=== PATIENT | female | born 1935 | race Caucasian/White ===

== ENCOUNTER 2017-01-16 14:03 | Inpatient (IN) | payer MEDICARE ==
--- NOTE | 2017-01-16 15:16 | RAD ---
INDICATION: Fever. Cough. COMPARISON: June 28, 2016 TECHNIQUE: An AP portable view obtained at 1453 hours is submitted. FINDINGS: Bones/Soft Tissues: There are no acute bony findings. Cardiomediastinal: The correct silhouette is mildly prominent with uncoiling of the thoracic aorta. In part this is accentuated by significant rotation on the image. Lungs: There is mild interstitial prominence likely related to interstitial congestion. There may be a developing left basilar infiltrate Pleura: Suspect small left-sided effusion. Other: None IMPRESSION: SUSPECT MILD INTERSTITIAL CONGESTION AND DEVELOPING LEFT BASILAR INFILTRATE AND RECOMMEND FOLLOW-UP INDICATED.
[2017-01-16] MEDS ORDERED: NS 0.9% 1000 ML* 1,000 ML IV ONE (15:25)
[2017-01-16] MEDS ORDERED: Levofloxacin 750 MG IVPREMIX(* 750 MG/150 ML BAG IVPB ONE (15:25)
[2017-01-16 15:33] LABS: Hematocrit 39 % (35-47); Hemoglobin 12.7 g/dl (12.0-16.0); Mean Corpuscular HGB Conc 33 g/dl (31-36); Mean Corpuscular Hemoglobin 30 pg (27-31); Mean Corpuscular Volume 91 fL (80-97); Mean Platelet Volume 8 um3 (7.4-10.4); Red Blood Count 4.24 10^6/ul (4.0-5.4); Red Cell Distribution Width 13 % (10.5-15); White Blood Count 16.8 10^3/ul (3.5-10.8)
[2017-01-16 15:50] LABS: BUN/Creatinine Ratio 16.9 (8-20); C Reactive Protein 31.83 mg/L (< 5.00); Calcium 9.6 mg/dL (8.6-10.3); EGFR African American 78.1 (>60); EGFR Non-African American 60.7 (>60); Total Bilirubin 0.7 mg/dL (0.2-1.0)
[2017-01-16 15:51] LABS: Troponin I 0.01 ng/mL (<0.04)
[2017-01-16] MEDS ORDERED: Ondansetron INJ* 2 MG/ML VIAL IV PRN (16:08)
[2017-01-16] MEDS ORDERED: Albuterol 2.5 MG/3 ML NEB.SOL* (0.083%) INH PRN (16:08)
[2017-01-16] MEDS ORDERED: Acetaminophen TAB* 325 MG PO PRN (16:08)
[2017-01-16] MEDS ORDERED: NS 0.9% 1000 ML* 1,000 ML IV SCH (16:15)
[2017-01-16] MEDS ORDERED: Potassium Chlor TAB* 20 MEQ TAB.ER PO ONE (16:29)
--- NOTE | 2017-01-16 19:09 | HP ---
HISTORY AND PHYSICAL: DATE OF ADMISSION: 01/16/17 PRIMARY CARE PROVIDER: Dr. Liz ATTENDING PHYSICIAN WHILE IN THE HOSPITAL: Dr. Lisa Garcia* (report dictated by Anabell Villatoro NP). CHIEF COMPLAINT: 1. Cough. 2. Shortness of breath. HISTORY OF PRESENT ILLNESS: Ms. Haro is an 81-year-old female patient who has a history of AFib, COPD, GERD, hypertension, depression, and arthritis, who comes in today stating that in the last 24 hours, she developed a progressive worsening cough, shortness of breath, bringing up a green-yellowish type sputum. She has gotten progressively worse over the last 24 hours, so she decided to come into the ER to be evaluated. She says that she has been coughing more. She has been more short of breath. She says that recently one of her grandchildren was sick with a sore throat, and she had received a kiss from her on the cheek and that was a few days ago. She denied any chills or fevers. She does admit to having chills here. She denies having any chest pain. She does admit to shortness of breath, particularly with exertion. She denied any abdominal pain, any nausea or vomiting or any recent choking with food. She came into the ER, was evaluated. She was noted on x-ray to have what appeared to be an infiltrate. In addition to this, she was found to have elevated white count. Hospitalist service was asked to evaluate for admission. PAST MEDICAL HISTORY: Significant for: 1. AFib. 2. COPD. 3. GERD. 4. Hypertension. 5. Depression. 6. Arthritis. PAST SURGICAL HISTORY: 1. She has had a laparoscopic cholecystectomy. 2. Cataracts. 3. Tonsillectomy. HOME MEDICATIONS: Include according to the list: 1. Dyazide one capsule p.o. daily. 2. Zoloft 50 mg daily. 3. Xarelto 20 mg p.o. daily. 4. Lyrica 100 mg p.o. t.i.d. 5. Potassium 20 mEq p.o. b.i.d. 6. Prilosec 20 mg p.o. b.i.d. 7. Naproxen 375 mg p.o. b.i.d. 8. Singulair 10 mg p.o. daily. 9. Loratadine 10 mg daily. 10. Atrovent 2 puffs inhaled q.i.d. 11. Hydrocortisone topically b.i.d. as needed. 12. Lorcet one tablet p.o. every 4 hours as needed. 13. Lasix 20 mg p.o. b.i.d. 14. Ferrous sulfate 325 mg daily. 15. Colace 100 mg p.o. b.i.d. 16. Diltiazem 300 mg p.o. daily. 17. Albuterol 2 puffs inhaled every 3 to 4 hours as needed. ALLERGIES TO MEDICATIONS: No known drug allergies. FAMILY HISTORY: Reviewed and essentially noncontributory. SOCIAL HISTORY: She is a former smoker. She does not drink alcohol. She lives with her boyfriend. Surrogate decision maker is her daughter and her son. REVIEW OF SYSTEMS: There is no documented fever. She denied any significant weight change. There was no double vision. There is no ear discharge. She denies having any rhinorrhea. She does admit to a sore throat. There is no thyroid enlargement. Denies any chest pain. There is dyspnea on exertion. There is no abdominal pain. No nausea, no vomiting. No dysuria, no frequency. No seizure. No loss of consciousness. No pruritus. No skin ulceration. Review of 14 systems completed, all others negative. PHYSICAL EXAMINATION GENERAL: Ms. Haro is an 81-year-old female patient. She is sitting in the ER stretcher. She does not appear to be in acute distress. VITAL SIGNS: Blood pressure 126/47, pulse 93, respirations 20, O2 sat 95% on 2 L, temperature 99.5. HEENT: Head is atraumatic and normocephalic. Eyes: EOMs are intact. Sclerae anicteric and not pale. Throat: Oral mucosa appears to be moist. No oropharyngeal erythema. NECK: Supple. LUNGS: She had wheezes noted in the upper lobe. She had rhonchi in the right lower base. HEART: Sounds S1, S2. Regular rate and rhythm. ABDOMEN: Soft, flat, nontender. Bowel sounds present. EXTREMITIES: Pulses were 2+ throughout. She is able to move all 4 extremities with 5/5 strength. NEUROLOGIC: She is awake. She is alert. She is oriented x3. Tongue midline. Cytotechnologist were equal. No gross focal deficits. SKIN: Grossly intact. DIAGNOSTIC STUDIES/LAB DATA: The labs today reveal WBC of 16.8, RBC of 4.24, hemoglobin 12.7, hematocrit 39, platelet count of 211. INR 1.63. The sodium was 138, potassium 3.0, chloride 95, 40, BUN 15, creatinine 0.89, glucose 146, lactate 2.6, calcium 9.6. Total bilirubin 0.7, AST 15, ALT 9, alk phos 89. Troponin 0.01, CRP is 31, albumin of 4. Chest x-ray obtained today which showed suspect mild interstitial congestion developing left basilar infiltrate. Recommend followup. There was an EKG obtained today, which revealed atrial fibrillation, rate of 92. No ST elevations or T wave inversions. Old medical records were reviewed. ASSESSMENT AND PLAN: Ms. Haro is an 81-year-old female patient coming into the ER today with complaints of cough, bringing up sputum. On evaluation was found to have an elevated white count, possible pneumonia. She will be admitted under inpatient status for: 1. Pneumonia. At this point, she does have early signs of sepsis. She has got an elevated white count, heart rates in the 90s. My plan is that she get a liter of fluid here in the ER. We will repeat the lactate later tonight. In addition to this, we will put her on Rocephin and azithromycin. I will also get blood cultures if they have not been done yet. We will check flu swab, legionella antigen, Strep pneumo antigen. In addition to this, we will get a sputum culture if possible, and we will continue to follow. 2. AFib. She appears to be rate controlled while she is here in the hospital. We will continue the Xarelto. In addition to this, I am also going to go ahead and change her diltiazem CD to the short-acting version while she is here in the hospital, with hold parameters. 3. Chronic obstructive pulmonary disease. She is wheezing on exam. We will put her on nebs round the clock, steroids, Dulera, and aggressive pulmonary toileting. 4. Gastroesophageal reflux disease. Continue with her meds as prescribed. 5. Hypertension. Holding the Lasix, not Dyazide while she is here. We will continue with the diltiazem with hold parameters. 6. Depression. Continue supportive care. 7. Arthritis. Continue current medical regimen. 8. DVT prophylaxis. She is on Xarelto. We will continue with this and SCDs. 9. Fluid, electrolytes and nutrition. She can have a regular diet. 10. Code status is full code. 11. Hypokalemia. We will go ahead and replace this with p.o. and IV potassium. TIME SPENT: On this admission was approximately 70 minutes, greater than half the time was spent [id number] with the patient, obtaining my history of physical; the other half time was spent going over the plan of care with the patient and implementing plan of care. I did discuss the plan of care with my attending Dr. Garcia; she is in agreement. ANABELL VILLATORO NP CC: Dr. Liz* [id number]/CPS #: [id number] LAURENCE
[2017-01-16] MEDS: KCL 10 MEQ/50 ML IVPREMIX* 10 MEQ/50 ML BAG IV SCH ×2 (19:14→21:30)
--- NOTE | 2017-01-16 19:23 | ED ---
Kelley Mandel Alok, scribed for Cheng Ramos MD on 01/16/17 at 1446 . Shortness of Breath - HPI Summary HPI Summary: 81F presents to the ED sent here from her PCP Dr. Liz with a productive cough with yellow sputum beginning last night. Pt states she felt fine during the day yesterday. Pt notes SOB this morning due to chest congestion and notes a fever earlier. PMHx includes COPD and A fib. Pt is on 2L O2 at home. - History of Current Complaint Chief Complaint: EDDysrhythmPalp Time Seen by Provider: 01/16/17 14:19 Hx Obtained From: Patient Onset/Duration: Lasting Hours, Still Present Current Severity: Moderate Dyspnea At: Rest Associated Signs & Symptoms: Cough (Productive), Fever - Allergy/Home Medications Allergies/Adverse Reactions: Allergies Allergy/AdvReac Type Severity Reaction Status Date / Time No Known Allergies Allergy Verified 07/06/16 10:39 Home Medications: Home Medications Diltiazem HCl Coated Beads [Cartia Xt] 300 mg PO DAILY 01/16/17 [History Confirmed 01/16/17] Hydrocortisone 1% CREAM* [Hytone Cream 1%*] 1 applic TOPICAL BID PRN 01/16/17 [ History Confirmed 01/16/17] Ipratropium HFA INHALER(NF) [Atrovent Hfa Inhaler(NF)] 2 puff INH QID 01/16/17 [ History Confirmed 01/16/17] Loratadine [Allergy Relief] 10 mg PO DAILY 01/16/17 [History Confirmed 01/16/17] Naproxen TAB* [Naprosyn 375 mg TAB*] 375 mg PO BID 01/16/17 [History Confirmed 01/16/17] Rivaroxaban TAB(*) [Xarelto 20 mg] 20 mg PO DAILY 01/16/17 [History Confirmed ] Triamterene/HCTZ 37.5-25 MG* [Dyazide CAP*] 1 cap PO DAILY 01/16/17 [History Confirmed 01/16/17] PMH/Surg Hx/FS Hx/Imm Hx Cardiovascular History: Reports: Hx Congestive Heart Failure, Hx Hypertension Denies: Hx Myocardial Infarction Respiratory History: Reports: Hx Asthma, Hx Chronic Obstructive Pulmonary Disease (COPD) - 2-4 L O2 at home, Other Respiratory Problems/Disorders - copd Musculoskeletal History: Reports: Hx Arthritis Sensory History: Reports: Hx Contacts or Glasses Opthamlomology History: Reports: Hx Contacts or Glasses Psychiatric History: Reports: Hx Anxiety, Hx Depression - Surgical History Surgery Procedure, Year, and Place: cholecystectomy Infectious Disease History: Denies: Traveled Outside the [place] in Last 30 Days - Family History Known Family History: Negative: Cardiac Disease, Hypertension, Diabetes - Social History Occupation: Retired Lives: With Family Alcohol Use: None Hx Substance Use: No Substance Use Type: Reports: None, Synthetic Drugs Hx Tobacco Use: No Smoking Status (MU): Never Smoked Tobacco Have You Smoked in the Last Year: No Review of Systems Positive: Fever - earlier Positive: Other - Chest Congestion Positive: Shortness Of Breath, Cough All Other Systems Reviewed And Are Negative: Yes Physical Exam Triage Information Reviewed: Yes Vital Signs On Initial Exam: Initial Vitals Temp Pulse Resp BP Pulse Ox 99.5 F 155 19 153/70 88 01/16/17 14:04 01/16/17 14:04 01/16/17 14:04 01/16/17 14:04 01/16/17 14:04 Vital Signs Reviewed: Yes Appearance: Positive: Well-Appearing, No Pain Distress Skin: Positive: Warm, Skin Color Reflects Adequate Perfusion, Dry Head/Face: Positive: Normal Head/Face Inspection Eyes: Positive: Normal ENT: Positive: Normal ENT inspection Neck: Positive: Supple, Nontender Respiratory/Lung Sounds: Positive: Other - Wheezes and Rhonchi in all lung feilds. Wet sounding cough. Piting edema bilaterally. Cardiovascular: Positive: Other - Irregular Heart Rate Abdomen Description: Positive: Nontender, Soft Bowel Sounds: Positive: Present Musculoskeletal: Positive: Normal Neurological: Positive: Normal Psychiatric: Positive: Normal, Affect/Mood Appropriate - Mary Coma Scale Coma Scale Total: 15 Diagnostics - Vital Signs Vital Signs Temp Pulse Resp BP Pulse Ox 01/16/17 14:25 99.5 F 94 20 117/70 94 01/16/17 14:04 99.5 F 155 19 153/70 88 - Laboratory Lab Results: Lab Results 01/16/17 01/16/17 01/16/17 Range/Units 15:12 15:12 15:12 WBC 16.8 H (3.5-10.8) 10^3/ul RBC 4.24 (4.0-5.4) 10^6/ul Hgb 12.7 (12.0-16.0) g/dl Hct 39 (35-47) % MCV 91 (80-97) fL MCH 30 (27-31) pg MCHC 33 (31-36) g/dl RDW 13 (10.5-15) % Plt Count 211 (150-450) 10^3/ul MPV 8 (7.4-10.4) um3 Neut % (Auto) 87.0 H (38-83) % Lymph % (Auto) 5.8 L (25-47) % [place] % (Auto) 6.6 (1-9) % Eos % (Auto) 0.3 (0-6) % Baso % (Auto) 0.3 (0-2) % Absolute Neuts (auto) 14.6 H (1.5-7.7) 10^3/ul Absolute Lymphs (auto) 1.0 (1.0-4.8) 10^3/ul Absolute Monos (auto) 1.1 H (0-0.8) 10^3/ul Absolute Eos (auto) 0.1 (0-0.6) 10^3/ul Absolute Basos (auto) 0.1 (0-0.2) 10^3/ul Absolute Nucleated RBC 0 10^3/ul Nucleated RBC % 0 INR (Anticoag Therapy) 1.63 H (0.89-1.11) Sodium 138 (133-145) mmol/L Potassium 3.0 L (3.5-5.0) mmol/L Chloride 90 L (101-111) mmol/L Carbon Dioxide 40 H (22-32) mmol/L Anion Gap 8 (2-11) mmol/L BUN 15 (6-24) mg/dL Creatinine 0.89 (0.51-0.95) mg/dL Est GFR ( Amer) 78.1 (>60) Est GFR (Non-Af Amer) 60.7 (>60) BUN/Creatinine Ratio 16.9 (8-20) Glucose 146 H (70-100) mg/dL Lactic Acid (0.5-2.0) mmol/L Calcium 9.6 (8.6-10.3) mg/dL Total Bilirubin 0.70 (0.2-1.0) mg/dL AST 15 (13-39) U/L ALT 9 (7-52) U/L Alkaline Phosphatase 89 (34-104) U/L Troponin I 0.01 (<0.04) ng/mL C-Reactive Protein 31.83 H (< 5.00) mg/L B-Natriuretic Peptide ( - 100) pg/mL Total Protein 7.0 (6.4-8.9) g/dL Albumin 4.0 (3.2-5.2) g/dL Globulin 3.0 (2-4) g/dL Albumin/Globulin Ratio 1.3 (1-3) 01/16/17 01/16/17 Range/Units 15:12 15:12 WBC (3.5-10.8) 10^3/ul RBC (4.0-5.4) 10^6/ul Hgb (12.0-16.0) g/dl Hct (35-47) % MCV (80-97) fL MCH (27-31) pg MCHC (31-36) g/dl RDW (10.5-15) % Plt Count (150-450) 10^3/ul MPV (7.4-10.4) um3 Neut % (Auto) (38-83) % Lymph % (Auto) (25-47) % [place] % (Auto) (1-9) % Eos % (Auto) (0-6) % Baso % (Auto) (0-2) % Absolute Neuts (auto) (1.5-7.7) 10^3/ul Absolute Lymphs (auto) (1.0-4.8) 10^3/ul Absolute Monos (auto) (0-0.8) 10^3/ul Absolute Eos (auto) (0-0.6) 10^3/ul Absolute Basos (auto) (0-0.2) 10^3/ul Absolute Nucleated RBC 10^3/ul Nucleated RBC % INR (Anticoag Therapy) (0.89-1.11) Sodium (133-145) mmol/L Potassium (3.5-5.0) mmol/L Chloride (101-111) mmol/L Carbon Dioxide (22-32) mmol/L Anion Gap (2-11) mmol/L BUN (6-24) mg/dL Creatinine (0.51-0.95) mg/dL Est GFR ( Amer) (>60) Est GFR (Non-Af Amer) (>60) BUN/Creatinine Ratio (8-20) Glucose (70-100) mg/dL Lactic Acid 2.6 H* (0.5-2.0) mmol/L Calcium (8.6-10.3) mg/dL Total Bilirubin (0.2-1.0) mg/dL AST (13-39) U/L ALT (7-52) U/L Alkaline Phosphatase (34-104) U/L Troponin I (<0.04) ng/mL C-Reactive Protein (< 5.00) mg/L B-Natriuretic Peptide 134 H ( - 100) pg/mL Total Protein (6.4-8.9) g/dL Albumin (3.2-5.2) g/dL Globulin (2-4) g/dL Albumin/Globulin Ratio (1-3) Result Diagrams: 01/16/17 15:12 01/16/17 15:12 Lab Statement: Any lab studies that have been ordered have been reviewed, and results considered in the medical decision making process. - Radiology CXR Xray Interpretation: Positive (See Comments) - IMPRESSION: SUSPECT MILD INTERSTITIAL CONGESTION AND DEVELOPING LEFT BASILAR INFILTRATE AND RECOMMEND FOLLOW-UP INDICATED. Radiology Interpretation Completed By: Radiologist - EKG 1423 Cardiac Rate: NL - 92 bpm EKG Rhythm: Atrial Fibrillation Course/Dx - Course Course Of Treatment: Ms. Haro presented in obvious distress. She looked pale and ill. She was treated with fluids gently (she has a CHF history) and antibiotics after a CXR revealed an infiltrate. - Diagnoses Provider Diagnoses: Pneumonia, Severe sepsis - Physician Notifications Discussed Care of Patient With: Attila Villatoro (Hospitalist, PLUGGER MAN) @ [id number] - Will admit pt - Critical Care Time Critical Care Time: 30-74 min Discharge - Discharge Plan Condition: Stable Disposition: ADMITTED TO [facility] documentation as recorded by the Kelley angeles Alok accurately reflects the service I personally performed and the decisions made by me, Cheng Ramos MD.
[2017-01-16] MEDS: cefTRIAXone VIAL(*) 1,000 MG in NS 0.9% 50 ML* 50 ML IVPB SCH (19:32)
[2017-01-16] MEDS: Azithromycin IV(*) 500 MG in NS 0.9% 250 ML* 250 ML IVPB SCH (20:07)
[2017-01-16] MEDS: Albuterol/Ipratropium NEB.SOL* Albuterol 2.5 MG/Ipratropium 0.5 MG 3 ML INH SCH ×2 (20:11)
[2017-01-16] MEDS: Mometasone/Formoter 200/5 MDI INH SCH (20:21)
[2017-01-16] MEDS: Pregabalin CAP(*) 100 MG PO SCH (21:33)
[2017-01-16] MEDS: Omeprazole CAP* 20 MG PO SCH (21:33)
[2017-01-17] LABS: Urine Bacteria 1+ (Absent); Urine Bilirubin Negative (Negative); Urine Glucose Negative (Negative); Urine Nitrite Positive (Negative)
[2017-01-17] MEDS: KCL 10 MEQ/50 ML IVPREMIX* 10 MEQ/50 ML BAG IV SCH (00:17)
[2017-01-17] MEDS: Albuterol/Ipratropium NEB.SOL* Albuterol 2.5 MG/Ipratropium 0.5 MG 3 ML INH SCH ×6 (00:19→20:44)
[2017-01-17] MEDS: HYDROcodone/ACETAMIN 5-325 MG* 1 TAB PO PRN ×5 (00:35→21:27)
[2017-01-17 05:11] LABS: Hematocrit 36 % (35-47); Mean Corpuscular HGB Conc 33 g/dl (31-36); Mean Corpuscular Hemoglobin 31 pg (27-31); Mean Corpuscular Volume 92 fL (80-97); Mean Platelet Volume 9 um3 (7.4-10.4); Red Blood Count 3.94 10^6/ul (4.0-5.4); Red Cell Distribution Width 13 % (10.5-15); White Blood Count 10.8 10^3/ul (3.5-10.8)
[2017-01-17 05:21] LABS: BUN/Creatinine Ratio 14.6 (8-20); Calcium 9.1 mg/dL (8.6-10.3); EGFR African American 85.8 (>60); EGFR Non-African American 66.7 (>60); Potassium 3.3 mmol/L (3.5-5.0)
[2017-01-17] MEDS: Omeprazole CAP* 20 MG PO SCH ×2 (08:12→21:26)
[2017-01-17] MEDS: Pregabalin CAP(*) 100 MG PO SCH ×3 (08:12→21:26)
[2017-01-17] MEDS: Sertraline* 50 MG TAB PO SCH (08:12)
[2017-01-17] MEDS: Rivaroxaban TAB(*) 20 MG TAB PO SCH (08:13)
[2017-01-17] MEDS: Diltiazem TAB* 60 MG PO SCH ×3 (08:13→17:05)
[2017-01-17] MEDS: Mometasone/Formoter 200/5 MDI INH SCH ×2 (08:27→20:44)
[2017-01-17] MEDS: Furosemide IV* 10 MG/ML 2 ML VIAL (20 MG) IV SLOW PU SCH (13:48)
[2017-01-17] MEDS: cefTRIAXone VIAL(*) 1,000 MG in NS 0.9% 50 ML* 50 ML IVPB SCH (17:06)
--- NOTE | 2017-01-17 17:28 | PN ---
Subjective Date of Service: 01/17/17 Interval History: Seen with battery inspector at bedside Feels breathing is improved Appetite low +cough Objective Active Medications: Acetaminophen (Tylenol Tab*) 650 mg PO Q4H PRN PRN Reason: FEVER/PAIN Hydrocodone Bitart/Acetaminophen ([place] 5-325 Tab*) 1 tab PO Q4H PRN PRN Reason: PAIN Last Admin: 01/17/17 17:05 Dose: 1 tab Albuterol (Ventolin 2.5 Mg/3 Ml Neb.Selina*) 2.5 mg INH Q2H PRN PRN Reason: SOB/WHEEZING Albuterol/Ipratropium (Duoneb (Albuterol 2.5 Mg/Ipratropium 0.5 Mg)) 1 neb INH Q4H [facility] Last Admin: 01/17/17 16:36 Dose: 1 neb Diltiazem HCl (Cardizem Tab*) 60 mg PO Q6HR [facility] Last Admin: 01/17/17 17:05 Dose: 60 mg Furosemide (Lasix Iv*) 20 mg IV SLOW PU DAILY [facility] Last Admin: 01/17/17 13:48 Dose: 20 mg Ceftriaxone Sodium 1,000 mg/ (Sodium Chloride) 50 mls @ 200 mls/hr IVPB Q24H [facility] Last Admin: 01/17/17 17:06 Dose: 200 mls/hr Azithromycin 500 mg/ Sodium (Chloride) 250 mls @ 250 mls/hr IVPB Q24H [facility]Y Last Admin: 01/16/17 20:07 Dose: 250 mls/hr Mometasone Furoate/Formoterol Fumar (Dulera 200/5 Mdi*) 2 puff INH BID [facility] Last Admin: 01/17/17 08:27 Dose: 2 puff Omeprazole (Prilosec Cap*) 20 mg PO BID [facility] Last Admin: 01/17/17 08:12 Dose: 20 mg Ondansetron HCl (Zofran Inj*) 4 mg IV Q6H PRN PRN Reason: NAUSEA Pregabalin (Lyrica Cap(*)) 100 mg PO TID [facility] Last Admin: 01/17/17 12:05 Dose: 100 mg Rivaroxaban (Xarelto (*)) 20 mg PO DAILY [facility] Last Admin: 01/17/17 08:13 Dose: 20 mg Sertraline HCl (Zoloft*) 50 mg PO DAILY [facility] Last Admin: 01/17/17 08:12 Dose: 50 mg Vital Signs 01/16/17 01/16/17 01/16/17 18:00 20:00 20:05 Temperature 98.4 F 99.5 F Pulse Rate 89 95 Respiratory 22 22 20 Rate Blood Pressure 121/65 128/71 (mmHg) O2 Sat by Pulse 96 92 Oximetry 01/16/17 01/16/17 01/16/17 20:14 20:17 21:33 Temperature Pulse Rate 90 89 Respiratory 22 Rate Blood Pressure (mmHg) O2 Sat by Pulse 98 92 Oximetry 01/16/17 01/17/17 01/17/17 23:33 00:23 00:35 Temperature Pulse Rate 89 Respiratory 20 20 Rate Blood Pressure (mmHg) O2 Sat by Pulse 98 Oximetry 01/17/17 01/17/17 01/17/17 00:41 02:35 04:32 Temperature 98.5 F Pulse Rate 106 87 Respiratory 20 18 Rate Blood Pressure 135/63 (mmHg) O2 Sat by Pulse 90 94 Oximetry 01/17/17 01/17/17 01/17/17 04:39 04:43 07:26 Temperature 98.5 F 98.1 F Pulse Rate 75 94 89 Respiratory 20 20 Rate Blood Pressure 112/67 132/79 (mmHg) O2 Sat by Pulse 96 93 97 Oximetry 01/17/17 01/17/17 01/17/17 08:00 08:05 08:12 Temperature Pulse Rate Respiratory 18 18 22 Rate Blood Pressure (mmHg) O2 Sat by Pulse Oximetry 01/17/17 01/17/17 01/17/17 08:30 10:05 10:12 Temperature Pulse Rate 89 Respiratory 20 18 19 Rate Blood Pressure (mmHg) O2 Sat by Pulse 93 Oximetry 01/17/17 01/17/17 01/17/17 11:59 12:05 13:40 Temperature 97.3 F Pulse Rate 82 Respiratory 24 18 18 Rate Blood Pressure 128/75 (mmHg) O2 Sat by Pulse 96 Oximetry 01/17/17 01/17/17 01/17/17 13:43 16:10 16:40 Temperature 98.2 F Pulse Rate 93 85 82 Respiratory 18 20 18 Rate Blood Pressure 118/59 (mmHg) O2 Sat by Pulse 99 99 Oximetry 01/17/17 01/17/17 17:05 17:10 Temperature Pulse Rate Respiratory 16 Rate Blood Pressure 114/59 (mmHg) O2 Sat by Pulse Oximetry Oxygen Devices in Use Now: Nasal Cannula Appearance: sitting in chair, talks in full sentences, NAD Eyes: No Scleral Icterus, PERRLA Ears/Nose/Mouth/Throat: Mucous Membranes Moist Neck: NL Appearance and Movements; NL JVP, Trachea Midline Respiratory: Symmetrical Chest Expansion and Respiratory Effort, - - rhonchi on right from base to 2/3 up Cardiovascular: - - IRIR Abdominal: NL Sounds; No Tenderness; No Distention, No Hepatosplenomegaly Extremities: - - 2+ LE edema Neurological: Alert and Oriented x 3 Result Diagrams: 01/17/17 04:26 01/17/17 04:26 Additional Lab and Data: Lab Results 01/16/17 01/16/17 01/16/17 Range/Units 15:12 15:12 15:12 WBC 16.8 H (3.5-10.8) 10^3/ul RBC 4.24 (4.0-5.4) 10^6/ul Hgb 12.7 (12.0-16.0) g/dl Hct 39 (35-47) % MCV 91 (80-97) fL MCH 30 (27-31) pg MCHC 33 (31-36) g/dl RDW 13 (10.5-15) % Plt Count 211 (150-450) 10^3/ul MPV 8 (7.4-10.4) um3 Neut % (Auto) 87.0 H (38-83) % Lymph % (Auto) 5.8 L (25-47) % [place] % (Auto) 6.6 (1-9) % Eos % (Auto) 0.3 (0-6) % Baso % (Auto) 0.3 (0-2) % Absolute Neuts (auto) 14.6 H (1.5-7.7) 10^3/ul Absolute Lymphs (auto) 1.0 (1.0-4.8) 10^3/ul Absolute Monos (auto) 1.1 H (0-0.8) 10^3/ul Absolute Eos (auto) 0.1 (0-0.6) 10^3/ul Absolute Basos (auto) 0.1 (0-0.2) 10^3/ul Absolute Nucleated RBC 0 10^3/ul Nucleated RBC % 0 INR (Anticoag Therapy) 1.63 H (0.89-1.11) Sodium 138 (133-145) mmol/L Potassium 3.0 L (3.5-5.0) mmol/L Chloride 90 L (101-111) mmol/L Carbon Dioxide 40 H (22-32) mmol/L Anion Gap 8 (2-11) mmol/L BUN 15 (6-24) mg/dL Creatinine 0.89 (0.51-0.95) mg/dL Est GFR ( Amer) 78.1 (>60) Est GFR (Non-Af Amer) 60.7 (>60) BUN/Creatinine Ratio 16.9 (8-20) Glucose 146 H (70-100) mg/dL Lactic Acid (0.5-2.0) mmol/L Calcium 9.6 (8.6-10.3) mg/dL Total Bilirubin 0.70 (0.2-1.0) mg/dL AST 15 (13-39) U/L ALT 9 (7-52) U/L Alkaline Phosphatase 89 (34-104) U/L Troponin I 0.01 (<0.04) ng/mL C-Reactive Protein 31.83 H (< 5.00) mg/L B-Natriuretic Peptide ( - 100) pg/mL Total Protein 7.0 (6.4-8.9) g/dL Albumin 4.0 (3.2-5.2) g/dL Globulin 3.0 (2-4) g/dL Albumin/Globulin Ratio 1.3 (1-3) 01/16/17 01/16/17 Range/Units 15:12 15:12 WBC (3.5-10.8) 10^3/ul RBC (4.0-5.4) 10^6/ul Hgb (12.0-16.0) g/dl Hct (35-47) % MCV (80-97) fL MCH (27-31) pg MCHC (31-36) g/dl RDW (10.5-15) % Plt Count (150-450) 10^3/ul MPV (7.4-10.4) um3 Neut % (Auto) (38-83) % Lymph % (Auto) (25-47) % [place] % (Auto) (1-9) % Eos % (Auto) (0-6) % Baso % (Auto) (0-2) % Absolute Neuts (auto) (1.5-7.7) 10^3/ul Absolute Lymphs (auto) (1.0-4.8) 10^3/ul Absolute Monos (auto) (0-0.8) 10^3/ul Absolute Eos (auto) (0-0.6) 10^3/ul Absolute Basos (auto) (0-0.2) 10^3/ul Absolute Nucleated RBC 10^3/ul Nucleated RBC % INR (Anticoag Therapy) (0.89-1.11) Sodium (133-145) mmol/L Potassium (3.5-5.0) mmol/L Chloride (101-111) mmol/L Carbon Dioxide (22-32) mmol/L Anion Gap (2-11) mmol/L BUN (6-24) mg/dL Creatinine (0.51-0.95) mg/dL Est GFR ( Amer) (>60) Est GFR (Non-Af Amer) (>60) BUN/Creatinine Ratio (8-20) Glucose (70-100) mg/dL Lactic Acid 2.6 H* (0.5-2.0) mmol/L Calcium (8.6-10.3) mg/dL Total Bilirubin (0.2-1.0) mg/dL AST (13-39) U/L ALT (7-52) U/L Alkaline Phosphatase (34-104) U/L Troponin I (<0.04) ng/mL C-Reactive Protein (< 5.00) mg/L B-Natriuretic Peptide 134 H ( - 100) pg/mL Total Protein (6.4-8.9) g/dL Albumin (3.2-5.2) g/dL Globulin (2-4) g/dL Albumin/Globulin Ratio (1-3) Microbiology and Other Data: Microbiology 01/16/17 23:40 Legionella Urinary Antigen - Final Urine Negative Legionella Streptococcus pneumoniae Ag Screen - Final Negative S. pneumo Antigen 01/16/17 20:12 Gram Stain - Final Sputum Expectorated 01/16/17 16:35 Group A Streptococcus Rapid Screen - Final Throat Specimen received for Rapid Strep A Molecular testing 01/16/17 16:35 Influenza Types A,B Antigen (SARAH) - Final Nasal Specimen received for Influenza A/B Molecular testing Assess/Plan/Problems-Billing Assessment: 81 yo F h/o COPD on home O2, afib, HTN, depression p/w cough, SOB, and infiltrate suggestive of PNA - Patient Problems (1) Pneumonia Comment: Suspect on left based on CXR however on right based on physical exam c/w CTX and azithromycin lasix 20mg IV today for intravascular volume overload (2) COPD (chronic obstructive pulmonary disease) Comment: c/w home oxygen via [place] dulera albuterol/ipratropium nebs PRN (3) Edema Comment: No e/o CHF on TTE IV lasix and monitor (4) Atrial fibrillation Comment: xarelto cardizem (5) DVT prophylaxis Comment: xarelto Status and Disposition: IV abx
[2017-01-17] MEDS: Azithromycin IV(*) 500 MG in NS 0.9% 250 ML* 250 ML IVPB SCH (17:46)
[2017-01-18] MEDS: Diltiazem TAB* 60 MG PO SCH ×2 (00:09→05:24)
[2017-01-18] MEDS: Albuterol/Ipratropium NEB.SOL* Albuterol 2.5 MG/Ipratropium 0.5 MG 3 ML INH SCH ×3 (00:23→08:40)
[2017-01-18] MEDS: HYDROcodone/ACETAMIN 5-325 MG* 1 TAB PO PRN (02:34)
[2017-01-18 06:30] LABS: Hematocrit 37 % (35-47); Hemoglobin 12.4 g/dl (12.0-16.0); Mean Corpuscular HGB Conc 34 g/dl (31-36); Mean Corpuscular Hemoglobin 31 pg (27-31); Mean Corpuscular Volume 92 fL (80-97); Mean Platelet Volume 9 um3 (7.4-10.4); Red Blood Count 4.03 10^6/ul (4.0-5.4); Red Cell Distribution Width 14 % (10.5-15); White Blood Count 12.8 10^3/ul (3.5-10.8)
[2017-01-18 06:52] LABS: BUN/Creatinine Ratio 13.6 (8-20); Calcium 9.4 mg/dL (8.6-10.3); EGFR African American 87.1 (>60); EGFR Non-African American 67.7 (>60)
[2017-01-18] MEDS ORDERED: Potassium Chlor TAB* 20 MEQ TAB.ER PO ONE (07:13)
[2017-01-18] MEDS: Rivaroxaban TAB(*) 20 MG TAB PO SCH (07:44)
[2017-01-18] MEDS: Pregabalin CAP(*) 100 MG PO SCH (07:44)
[2017-01-18] MEDS: Omeprazole CAP* 20 MG PO SCH (07:44)
[2017-01-18] MEDS: Sertraline* 50 MG TAB PO SCH (07:44)
[2017-01-18] MEDS: Furosemide IV* 10 MG/ML 2 ML VIAL (20 MG) IV SLOW PU SCH (07:46)
[2017-01-18 07:51] VITALS: BP 106/65
[2017-01-18] MEDS: Mometasone/Formoter 200/5 MDI INH SCH ×2 (08:40→10:19)
--- NOTE | 2017-01-19 12:17 | DS ---
DISCHARGE SUMMARY: DATE OF ADMISSION: 01/16/17 DATE OF DISCHARGE: 01/18/17 PRIMARY CARE PROVIDER: Dr. Liz. PRIMARY DIAGNOSIS: Pneumonia. SECONDARY DIAGNOSES: 1. Chronic obstructive pulmonary disease, on home oxygen. 2. Hypertension. 3. Depression. 4. Lower extremity edema. 5. Atrial fibrillation. 6. History of gastroesophageal reflux disease. 7. Arthritis. MEDICATIONS ON DISCHARGE: 1. Ipratropium HFA 4 times a day. 2. Ferrous sulfate 325 mg daily. 3. Docusate 100 mg twice daily. 4. Potassium chloride 20 mEq twice daily. 5. Albuterol HFA 2 puffs every 3 to 4 hours as needed for shortness of breath or wheeze. 6. Hydrocodone/acetaminophen one tab every 4 hours as needed for pain. 7. Loratadine 10 mg daily. 8. Hydrocortisone 1% cream topically twice daily as needed. 9. Diltiazem 300 mg daily. 10. Lyrica 100 mg 3 times a day. 11. Furosemide 20 mg twice daily. 12. Omeprazole 20 mg twice daily. 13. Naproxen 375 mg twice daily. 14. Singulair 10 mg daily. 15. Zoloft 50 mg daily. 16. Xarelto 20 mg daily. 17. Levofloxacin 750 mg daily for 7 additional days. Please note the discontinuation of Dyazide during the patient's hospital stay. PERTINENT LABORATORY DATA: White blood cell count on presentation 16.8. She has 87% neutrophils. Urine positive for leuk esterase, white blood cells, red blood cells, bacteria, and squamous epithelial cells with final urine culture positive for mixed montse as a possible contamination. PERTINENT IMAGING STUDIES: Chest x-ray, impression: Suspect mild interstitial congestion and developing left basilar infiltrate. T-max during the hospital stay was 99.5 degrees Fahrenheit. HISTORY OF PRESENT ILLNESS AND HOSPITAL COURSE: This is an 81-year-old female with past medical history as outlined in the history of present illness on the day of admission, presenting to the hospital with 24 hours of increasingly worse cough associated with shortness of breath. Chest x-ray in the emergency room was concerning for pulmonary vascular congestion as well as potentially developing left lower pneumonia. On exam, the patient had rhonchi from her right base up to two-thirds to her apex, discordant with chest x-ray findings. In the setting of leukocytosis, cough, shortness of breath and clinical exam, I thought the patient did clinically have a pneumonia. She was started on ceftriaxone and azithromycin in the emergency room, continued on Levaquin upon discharge for 7 additional days. Additionally, she received IV Lasix secondary to potentially intravascular pulmonary congestion, which is consistent with her lower extremity swelling. She will be continued on her home dose of Lasix after discharge. She had no fevers during the course of the hospital stay. Her leukocytosis improved. On the day of discharge, the patient felt that her breathing had returned to "100% of normal." On the day of discharge, the patient did have mild rales in her right base, largely improved from the day before. At followup, please; 1. Evaluate for continued resolution of pneumonia. Can consider repeat chest x - ray if symptoms do not resolve. 2. Mixed montse in urinary culture with resubmission suggested. Patient was asymptomatic and culture was not resubmitted. If symptomatic, please consider repeat UTI. 3. Dyazide stopped during the course of the hospital stay secondary to normal blood pressures. Consider resumption upon discharge if blood pressure becomes elevated. 4. No other specific labs or vitals that need followup. Reasons to return to the hospital include, but are not limited to, recurrent or worsening symptoms including chest pain, shortness of breath, lightheadedness, loss of consciousness, worsening cough, nausea, vomiting, diarrhea, bleeding from any source, inability to obtain or tolerate medications discussed with the patient and her partner and her son. They acknowledge understanding. TIME SPENT: Greater than 60 minutes was spent on the discharge of this patient , greater than half was spent [id number] with the patient. CC: Dr. Liz* [id number]/[facility] #: [id number] LAURENCE
== END 2017-01-18 11:48 | disposition home health service (06) | DRG 190 ==
LOC: ED 14:03 → MEDTELE 15:36
PROVIDERS: ADMIT Internal Medicine; ATTEND Internal Medicine
DX: J44.0 Chronic obstructive pulmonary disease with (acute) lower respiratory infection (principal); J18.9 Pneumonia, unspecified organism; I11.0 Hypertensive heart disease with heart failure; Z99.81 Dependence on supplemental oxygen; I48.91 Unspecified atrial fibrillation; I50.9 Heart failure, unspecified; J44.9 Chronic obstructive pulmonary disease, unspecified; M19.90 Unspecified osteoarthritis, unspecified site; F41.9 Anxiety disorder, unspecified; F32.9 Major depressive disorder, single episode, unspecified; R40.2412 Glasgow coma scale score 13-15, at arrival to emergency department; K21.9 Gastro-esophageal reflux disease without esophagitis; E87.6 Hypokalemia; Z90.49 Acquired absence of other specified parts of digestive tract; Z98.49 Cataract extraction status, unspecified eye; Z87.891 Personal history of nicotine dependence; Z79.01 Long term (current) use of anticoagulants
CPT/HCPCS: 36415; 71010; 80048; 80053; 81003; 81015; 83605; 83880; 84484; 85025; 85610; 86140; 87040; 87070; 87086; 87205; 87502; 87651; 87899; 93005; 94640; 94760; A9270-GY; J0456; J0696; J1940; J3480

== ENCOUNTER 2017-05-07 05:12 | Emergency (ER) | payer MEDICARE ==
[2017-05-07 05:55] LABS: Hematocrit 40 % (35-47); Hemoglobin 13.1 g/dl (12.0-16.0); Mean Corpuscular HGB Conc 33 g/dl (31-36); Mean Corpuscular Hemoglobin 30 pg (27-31); Mean Corpuscular Volume 91 fL (80-97); Mean Platelet Volume 8 um3 (7.4-10.4); Red Blood Count 4.34 10^6/ul (4.0-5.4); Red Cell Distribution Width 14 % (10.5-15); White Blood Count 9.2 10^3/ul (3.5-10.8)
[2017-05-07 06:00] LABS: Albumin 4.1 g/dL (3.2-5.2); BUN/Creatinine Ratio 16.9 (8-20); Calcium 9.9 mg/dL (8.6-10.3); EGFR African American 78.1 (>60); EGFR Non-African American 60.7 (>60); Globulin 3.1 g/dL (2-4); Potassium 3.6 mmol/L (3.5-5.0); Total Bilirubin 0.6 mg/dL (0.2-1.0); Total Protein 7.2 g/dL (6.4-8.9)
--- NOTE | 2017-05-07 06:14 | ED ---
Thad Mandel Rebecca, scribed for Gutierrez Panda on 05/07/17 at 0531 . Throat Pain/Nasal Congestion - HPI Summary HPI Summary: Pt is an 81 y/o F BIBA who presents to ED c/o epistaxis. Reports that her sx began last night at 1800 and continued until 2100. Upon waking up this morning, the bleeding began again but has stopped WEB SITE SPECIALIST. Sx aggravated by nothing, alleviated by spontaneous resolution. Pt reports that she feels well now. Is on Coumadin. Uses 2L O2 per Os at home. - History of Current Complaint Chief Complaint: EDEpistaxis Time Seen by Provider: 05/07/17 05:15 Hx Obtained From: Patient Onset/Duration: Lasting Hours, Resolved - Allergies/Home Medications Allergies/Adverse Reactions: Allergies Allergy/AdvReac Type Severity Reaction Status Date / Time No Known Allergies Allergy Verified 07/06/16 10:39 PMH/Surg Hx/FS Hx/Imm Hx Cardiovascular History: Reports: Hx Congestive Heart Failure, Hx Hypertension Denies: Hx Myocardial Infarction Respiratory History: Reports: Hx Asthma, Hx Chronic Obstructive Pulmonary Disease (COPD) - 2-4 L O2 at home, Other Respiratory Problems/Disorders - copd Musculoskeletal History: Reports: Hx Arthritis Sensory History: Reports: Hx Contacts or Glasses Denies: Hx Hearing Aid Opthamlomology History: Reports: Hx Contacts or Glasses Psychiatric History: Reports: Hx Anxiety, Hx Depression - Surgical History Surgery Procedure, Year, and Place: cholecystectomy Infectious Disease History: No Infectious Disease History: Denies: Traveled Outside the [place] in Last 30 Days - Family History Known Family History: Negative: Cardiac Disease, Hypertension, Diabetes - Social History Alcohol Use: None Hx Substance Use: No Substance Use Type: Reports: None Hx Tobacco Use: No Smoking Status (MU): Never Smoked Tobacco Have You Smoked in the Last Year: No Review of Systems Negative: Fever Positive: Epistaxis - resolved WEB SITE SPECIALIST All Other Systems Reviewed And Are Negative: Yes Physical Exam - Summary Physical Exam Summary: Appearance: Well appearing, no pain distress Skin: warm, dry, reflects adequate perfusion Head/face: normal Eyes: EOMI, LUCIUS ENT: dried blood in the nostrils, no active bleeding Neck: supple, nontender Respiratory: CTA, breath sounds present Cardiovascular: RRR, pulses symmetrical Abdomen: nontender, soft Bowel: present Musculoskeletal: normal, strength/ROM intact Neuro: normal, sensory motor intact, A&Ox3 Triage Information Reviewed: Yes Vital Signs On Initial Exam: Initial Vitals Temp Pulse Resp BP Pulse Ox 98.1 F 89 16 140/86 96 05/07/17 05:20 05/07/17 05:20 05/07/17 05:20 05/07/17 05:20 05/07/17 05:20 Vital Signs Reviewed: Yes Diagnostics - Vital Signs Vital Signs Temp Pulse Resp BP Pulse Ox 05/07/17 05:20 98.1 F 89 16 140/86 96 - Laboratory Result Diagrams: 05/07/17 05:30 05/07/17 05:30 Lab Statement: Any lab studies that have been ordered have been reviewed, and results considered in the medical decision making process. EENT Course/Dx - Course Assessment/Plan: Pt is an 81 y/o F BIBA who presents to ED c/o epistaxis. Reports that her sx began last night at 1800 and continued until 2100. Upon waking up this morning, the bleeding began again but has stopped WEB SITE SPECIALIST. Sx aggravated by nothing, alleviated by spontaneous resolution. Pt reports that she feels well now. Is on Coumadin. Uses 2L O2 per Os at home. Hgb of 13.1, Hct of 40, INR of 1.4. Pt will be D/C to home with Dx of epistaxis and a follow up with her PCP. She understands and agrees. Elevated BP noted and advised to f/u with PCP. - Diagnoses Provider Diagnoses: Epistaxis Discharge - Discharge Plan Condition: Stable Disposition: HOME Patient Education Materials: Nosebleed (ED) Referrals: Tonya Parrish, PERIOPERATIVE ASSISTANT [Primary Care Provider] - 3 Days The documentation as recorded by the Thad angeles Rebecca accurately reflects the service I personally performed and the decisions made by , Gutierrez Panda.
[2017-05-07 06:35] VITALS: BP 148/85
== END 2017-05-07 06:57 | disposition home or self-care (01) ==
LOC: ED 05:12
DX: R04.0 Epistaxis (principal); J44.9 Chronic obstructive pulmonary disease, unspecified; Z79.01 Long term (current) use of anticoagulants; I50.9 Heart failure, unspecified; I10 Essential (primary) hypertension; J45.909 Unspecified asthma, uncomplicated; F41.8 Other specified anxiety disorders; M19.90 Unspecified osteoarthritis, unspecified site
CPT/HCPCS: 36415; 80053; 85025; 85610; 85730; 99282

== ENCOUNTER 2017-07-30 08:34 | Emergency (ER) | payer MEDICARE ==
[2017-07-30 09:37] LABS: Hematocrit 36 % (35-47); Hemoglobin 11.7 g/dl (12.0-16.0); Mean Corpuscular HGB Conc 32 g/dl (31-36); Mean Corpuscular Hemoglobin 30 pg (27-31); Mean Corpuscular Volume 93 fL (80-97); Mean Platelet Volume 8 um3 (7.4-10.4); Red Blood Count 3.91 10^6/ul (4.0-5.4); Red Cell Distribution Width 14 % (10.5-15)
[2017-07-30 09:56] LABS: Albumin 3.5 g/dL (3.2-5.2); C Reactive Protein 6.37 mg/L (< 5.00); Calcium 9.3 mg/dL (8.6-10.3); EGFR African American 93.7 (>60); EGFR Non-African American 72.9 (>60); Globulin 2.9 g/dL (2-4); Potassium 4.2 mmol/L (3.5-5.0); Total Bilirubin 0.4 mg/dL (0.2-1.0); Total Protein 6.4 g/dL (6.4-8.9)
[2017-07-30 09:57] LABS: Troponin I 0.01 ng/mL (<0.04)
[2017-07-30] MEDS ORDERED: Pantoprazole TAB (NF) 40 MG TAB PO ONE (10:21)
[2017-07-30] MEDS ORDERED: Lidocaine 2% VISCOUS* 15 ML UDC PO ONE (10:21)
[2017-07-30] MEDS ORDERED: Al Hydrox/Mg Hydrox/Simet LIQ* 30 ML UDC PO ONE (10:21)
--- NOTE | 2017-07-30 10:22 | RAD ---
Indication: Shortness of breath. 2 views of the chest are reviewed and compared to previous exam dated January 16, 2017. Cardiomegaly is noted. Interstitial edema consistent with CHF is noted. Tortuous descending aorta is noted. There is likely bibasilar atelectasis and bilateral pleural effusions. 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
[2017-07-30 10:57] LABS: Urine Bacteria 1+ (Absent); Urine Bilirubin Negative (Negative); Urine Glucose Negative (Negative); Urine Nitrite Positive (Negative)
[2017-07-30] MEDS ORDERED: Ciprofloxacin 400MG IVPREMIX(* 400 MG/200 ML BAG IVPB ONE (10:58)
[2017-07-30] MEDS ORDERED: Omeprazole CAP* 20 MG PO ONE (11:00)
[2017-07-30 12:35] VITALS: BP 114/65
--- NOTE | 2017-07-31 08:35 | ED ---
Basil Mandel Angela, scribed for Mukund Oliva MD on 07/30/17 at 0917 . Shortness of Breath - HPI Summary HPI Summary: This pt is a 81 y/o female presenting to [facility] c/o increasing SOB since this morning. Pt reports she has a stomach illness and "upset stomach" for the past 2 days, associated with nausea. She describes a discomfort in her upper abd area. No abdominal pain. Pt denies vomiting, chest pain. Per nurse's note, pt's upset stomach is creating pressure which makes it harder to breathe. PMHx includes CHF, HTN, afib, COPD. - History of Current Complaint Chief Complaint: EDShortnessOfBreath Time Seen by Provider: 07/30/17 08:54 Hx Obtained From: Patient Onset/Duration: Lasting Hours, Still Present Timing: Constant Dyspnea At: Rest Associated Signs & Symptoms: Negative - Allergy/Home Medications Allergies/Adverse Reactions: Allergies Allergy/AdvReac Type Severity Reaction Status Date / Time No Known Allergies Allergy Verified 07/30/17 08:44 PMH/Surg Hx/FS Hx/Imm Hx Cardiovascular History: Reports: Hx Atrial Fibrillation, Hx Congestive Heart Failure, Hx Hypertension Denies: Hx Myocardial Infarction Respiratory History: Reports: Hx Asthma, Hx Chronic Obstructive Pulmonary Disease (COPD) - 2-4 L O2 at home, Other Respiratory Problems/Disorders - copd Musculoskeletal History: Reports: Hx Arthritis Sensory History: Reports: Hx Contacts or Glasses Denies: Hx Cataracts, Hx Eye Injury, Hx Eye Prosthesis, Hx Hearing Aid Opthamlomology History: Reports: Hx Contacts or Glasses Denies: Hx Cataracts, Hx Eye Injury, Hx Eye Prosthesis Psychiatric History: Reports: Hx Anxiety, Hx Depression - Surgical History Surgery Procedure, Year, and Place: cholecystectomy - Immunization History Date of Influenza Vaccine: 05/2017 Infectious Disease History: No Infectious Disease History: Denies: Traveled Outside the [place] in Last 30 Days - Family History Known Family History: Negative: Cardiac Disease, Hypertension, Diabetes - Social History Alcohol Use: None Hx Substance Use: No Substance Use Type: Reports: None Hx Tobacco Use: Yes Smoking Status (MU): Former Smoker Have You Smoked in the Last Year: No Review of Systems Negative: Fever, Chills Eyes: Negative ENT: Negative Negative: Chest Pain Positive: Shortness Of Breath Positive: Nausea. Negative: Abdominal Pain, Vomiting All Other Systems Reviewed And Are Negative: Yes Physical Exam - Summary Physical Exam Summary: VITAL SIGNS: Reviewed. GENERAL: Patient is a well-developed and nourished female who is lying comfortable in the stretcher. Patient is not in any acute respiratory distress. HEAD AND FACE: No signs of trauma. No ecchymosis, hematomas or skull depressions. No sinus tenderness. EYES: PERRLA, EOMI x 2, No injected conjunctiva, no nystagmus. EARS: Hearing grossly intact. Ear canals and tympanic membranes are within normal limits. MOUTH: Oropharynx within normal limits. NECK: Supple, trachea is midline, no adenopathy, no JVD, no carotid bruit, no c- spine tenderness, neck with full ROM. CHEST: Symmetric, no tenderness at palpation LUNGS: Some crackles in the bases of the lungs. CVS: Regular rate and rhythm, S1 and S2 present, no murmurs or gallops appreciated. ABDOMEN: Soft, non-tender. No signs of distention. No rebound no guarding, and no masses palpated. Bowel sounds are normal. EXTREMITIES: FROM in all major joints, no edema, no cyanosis or clubbing. NEURO: Alert and oriented x 3. No acute neurological deficits. Speech is normal and follows commands. SKIN: Dry and warm Triage Information Reviewed: Yes Vital Signs On Initial Exam: Initial Vitals Temp Pulse Resp BP Pulse Ox 97.6 F 85 22 144/72 100 07/30/17 08:41 07/30/17 08:41 07/30/17 08:41 07/30/17 08:41 07/30/17 08:41 Vital Signs Reviewed: Yes - Mary Coma Scale Coma Scale Total: 15 Diagnostics - Vital Signs Vital Signs Temp Pulse Resp BP Pulse Ox 07/30/17 08:45 84 98 07/30/17 08:43 22 144/72 07/30/17 08:41 97.6 F 85 22 144/72 100 - Laboratory Result Diagrams: 07/30/17 09:27 07/30/17 09:27 Lab Statement: Any lab studies that have been ordered have been reviewed, and results considered in the medical decision making process. - Radiology Chest XR Xray Interpretation: Positive (See Comments) - IMPRESSION: Cardiomegaly, tortuous descending aorta with interstitial edema and CHF. ED physician has reviewed this radiology report and agrees. Radiology Interpretation Completed By: Radiologist - EKG 0930 Cardiac Rate: NL EKG Rhythm: Atrial Fibrillation - at 79 bpm EKG Interpretation: No ST elevations Course/Dx - Course Assessment/Plan: This pt is a 81 y/o female presenting to [facility] c/o increasing SOB since this morning. Pt reports she has a stomach illness and "upset stomach " for the past 2 days, associated with nausea. She describes a discomfort in her upper abd area. No abdominal pain. Pt denies vomiting, chest pain. Per nurse's note, pt's upset stomach is creating pressure which makes it harder to breathe. PMHx includes CHF, HTN, afib, COPD. Test results without any significant abnormalities. Urinalysis is positive for UTI. Chest XR shows cardiomegaly, tortuous descending aorta with interstitial edema and CHF. In the ED course the pt was given IV fluids, Pepcid, and GI cocktail for the abdominal discomfort, and Ciprofloxacin for the UTI. After these medications the pts symptoms improved, the pt is feeling better. Therefore, she will be discharged home with follow up from her PCP. Pt is hemodynamically stable, alert and oriented x3. - Diagnoses Provider Diagnoses: Epigastric pain, UTI (urinary tract infection), GERD (gastroesophageal reflux disease) Discharge - Discharge Plan Condition: Stable Disposition: HOME Prescriptions: Ciprofloxacin TAB* [Cipro 500 MG TAB*] 500 mg PO BID #5 tab Omeprazole CAP* [Prilosec CAP* 20 MG] 20 mg PO DAILY #14 cap. Patient Education Materials: Urinary Tract Infection in Women (ED), Epigastric Pain (ED) Referrals: Tonya Parrish NP [Primary Care Provider] - Additional Instructions: Please follow up with your primary care provider. RETURN TO THE ED FOR ANY WORSENING SYMPTOMS. The documentation as recorded by the Basil angeles Angela accurately reflects the service I personally performed and the decisions made by , Mukund Oliva MD.
--- NOTE | 2017-08-01 09:04 | PN ---
Progress Note - Progress Note Date of Service: 07/30/17 Note: urine preliminary results show >100,000 of klebsiella penumoniae. diagnosed and treated for UTI. Placed on cipro. no further action required at this time. should have sufficient coverage. will wait for final culture results.
== END 2017-07-30 12:36 | disposition home or self-care (01) ==
LOC: ED 08:34
DX: R10.13 Epigastric pain (principal); N39.0 Urinary tract infection, site not specified; K21.9 Gastro-esophageal reflux disease without esophagitis; Z87.891 Personal history of nicotine dependence; I50.9 Heart failure, unspecified; I10 Essential (primary) hypertension; J44.9 Chronic obstructive pulmonary disease, unspecified
CPT/HCPCS: 36415; 71020; 80053; 81003; 81015; 83690; 83880; 84484; 85025; 85730; 86140; 87077; 87086; 87186; 93005; 96374; 99284; A9270-GY; J0744

== ENCOUNTER 2017-08-03 08:00 | Emergency (ER) | payer MEDICARE ==
[2017-08-03] MEDS ORDERED: Lidocaine 2% VISCOUS* 15 ML UDC PO ONE (08:04)
[2017-08-03] MEDS ORDERED: Ondansetron INJ* 2 MG/ML VIAL IV ONE (08:04)
[2017-08-03] MEDS ORDERED: Al Hydrox/Mg Hydrox/Simet LIQ* 30 ML UDC PO ONE (08:04)
[2017-08-03] MEDS ORDERED: Famotidine IV* 10 MG/ML 2 ML (20 mg) IV ONE (08:04)
[2017-08-03 08:54] LABS: Hematocrit 38 % (35-47); Hemoglobin 12.4 g/dl (12.0-16.0); Mean Corpuscular HGB Conc 32 g/dl (31-36); Mean Corpuscular Hemoglobin 30 pg (27-31); Mean Corpuscular Volume 92 fL (80-97); Mean Platelet Volume 8 um3 (7.4-10.4); Red Blood Count 4.14 10^6/ul (4.0-5.4); Red Cell Distribution Width 13 % (10.5-15); White Blood Count 9.1 10^3/ul (3.5-10.8)
--- NOTE | 2017-08-03 09:02 | RAD ---
INDICATION: Abdominal pain. COMPARISON: Comparison is made with a prior abdominal series from July 18, 2016. TECHNIQUE: Supine and upright views of the abdomen were obtained. FINDINGS: The small bowel and colon appear nondistended. No free intraperitoneal air is seen. There are multiple surgical clips in the right upper quadrant consistent with a prior cholecystectomy. There is moderate to severe degenerative disc disease throughout the lumbar spine. IMPRESSION: NO EVIDENCE FOR OBSTRUCTION.
[2017-08-03] MEDS ORDERED: Ketorolac INJ* 30 MG/ML 1 ML VIAL IV PUSH ONE (09:03)
[2017-08-03 09:07] LABS: BUN/Creatinine Ratio 16.5 (8-20)
[2017-08-03 09:08] LABS: Albumin 4.1 g/dL (3.2-5.2); C Reactive Protein 4.55 mg/L (< 5.00); Calcium 10.1 mg/dL (8.6-10.3); EGFR African American 82.3 (>60); Globulin 3.3 g/dL (2-4); Total Bilirubin 0.6 mg/dL (0.2-1.0); Total Protein 7.4 g/dL (6.4-8.9)
[2017-08-03 09:51] LABS: Urine Bilirubin Negative (Negative); Urine Glucose Negative (Negative); Urine Nitrite Negative (Negative)
[2017-08-03 10:32] VITALS: BP 127/67
--- NOTE | 2017-08-04 14:59 | ED ---
Gayatri Mandel Nilda, scribed for Mukund Oliva MD on 08/03/17 at 0808 . Abdominal Pain/Female - HPI Summary HPI Summary: This patient is an 81 year old F BIBA to [facility] accompanied by EMS with a chief complaint of constant burning abd pain in upper abdomen radiating to esophagus since this morning. The patient rates the pain 10/10 initially and 8/10 currently. Symptoms aggravated by food (tomato sauce eaten last night). Patient reports N/V/D (1x vomiting and loose stools this morning). Per EMS, pt denies true CP and abnormal SOB from baseline. Pt is on 2L O2 at home. PMHx COPD. Last week, patient visited ED with similar symptoms, which were resolved with medication. - History of Current Complaint Stated Complaint: ABD PAIN Hx Obtained From: Patient, EMS Onset/Duration: Sudden Onset, Lasting Hours, Still Present Timing: Constant Severity Initially: Severe Severity Currently: Severe Pain Intensity: 8 Pain Scale Used: 0-10 Numeric Location: Other - upper abdomen Radiates: Yes Radiates to: Other - esophagus Character: Burning Aggravating Factor(s): Food Alleviating Factor(s): Nothing Associated Signs and Symptoms: Positive: Other: - N/V/D; no CP or SOB abnormal from baseline. Allergies/Adverse Reactions: Allergies Allergy/AdvReac Type Severity Reaction Status Date / Time No Known Allergies Allergy Verified 07/30/17 08:44 PMH/Surg Hx/FS Hx/Imm Hx Cardiovascular History: Reports: Hx Atrial Fibrillation, Hx Congestive Heart Failure, Hx Hypertension Denies: Hx Myocardial Infarction Respiratory History: Reports: Hx Asthma, Hx Chronic Obstructive Pulmonary Disease (COPD) - 2-4 L O2 at home, Other Respiratory Problems/Disorders - copd Musculoskeletal History: Reports: Hx Arthritis Sensory History: Reports: Hx Contacts or Glasses Denies: Hx Cataracts, Hx Eye Injury, Hx Eye Prosthesis, Hx Hearing Aid Opthamlomology History: Reports: Hx Contacts or Glasses Denies: Hx Cataracts, Hx Eye Injury, Hx Eye Prosthesis Psychiatric History: Reports: Hx Anxiety, Hx Depression - Surgical History Surgery Procedure, Year, and Place: cholecystectomy - Immunization History Date of Influenza Vaccine: 05/2017 - Family History Known Family History: Negative: Cardiac Disease, Hypertension, Diabetes - Social History Alcohol Use: None Hx Substance Use: No Substance Use Type: Reports: None Hx Tobacco Use: Yes Smoking Status (MU): Former Smoker Have You Smoked in the Last Year: No Review of Systems Negative: Chest Pain Negative: Shortness Of Breath Positive: Abdominal Pain - upper abdomen radiating to esophageal area. , Vomiting, Diarrhea, Nausea All Other Systems Reviewed And Are Negative: Yes Physical Exam - Summary Physical Exam Summary: VITAL SIGNS: Reviewed. GENERAL: Patient is a well-developed and nourished elderly female who is lying comfortable in the stretcher in [facility]. Patient is not in any acute respiratory distress. HEAD AND FACE: Normocephalic and atraumatic. EYES: PERRLA, EOMI x 2, No injected conjunctiva. EARS: Hearing grossly intact. Ear canals and tympanic membranes are WNL. MOUTH: Oropharynx within normal limits. NECK: Supple, trachea is midline, no adenopathy, no JVD. CHEST: Symmetric, no tenderness at palpation LUNGS: Clear to auscultation bilaterally. No wheezing or crackles. CVS: RRR, S1 and S2 present, no murmurs or gallops appreciated. ABDOMEN: Soft, non-tender. No signs of distention. Positive bowel sounds. No rebound no guarding, and no masses palpated. No abdominal bruit or pulsations. EXTREMITIES: FROM in all major joints, bilat edema, no cyanosis or clubbing. NEURO: Alert and oriented x 3. No acute neurological deficits. Speech is normal. SKIN: Dry and warm Triage Information Reviewed: Yes Vital Signs Reviewed: Yes Diagnostics - Laboratory Result Diagrams: 08/03/17 08:42 08/03/17 08:42 Lab Statement: Any lab studies that have been ordered have been reviewed, and results considered in the medical decision making process. - Radiology Abd xray Radiology Interpretation Completed By: Radiologist - Abd xray, per radiologist, reveals no evidence for obstruction. ED physician has reviewed this radiology report and agrees. - EKG 0836 Cardiac Rate: NL EKG Rhythm: Sinus Rhythm - 78 bpm EKG Comparison: No Significant Change - from 07/30/17 EKG Re-Evaluation - Re-Evaluation First Eval Re-Evaluation Time: 09:16 Comment: Pt is in no pain. Requests UTI testing. Second Eval Re-Evaluation Time: 10:08 Comment: Discuss plan for D/C. Pt understands and agrees with this plan. Abdominal Pain Fem Course/Dx - Course Course Of Treatment: This patient is an 81 year old F BIBA to [facility] accompanied by EMS with a chief complaint of constant burning abd pain in upper abdomen radiating to esophagus since this morning. The patient rates the pain 10/10 initially and 8/10 currently. Symptoms aggravated by food (tomato sauce eaten last night). Patient reports N/V/D (1x vomiting and loose stools this morning). Per EMS, pt denies true CP and abnormal SOB from baseline. Pt is on 2L O2 at home. PMHx COPD. Last week, patient visited ED with similar symptoms which were resolved with medication. Pending labs, Abd XRAY, and EKG. An EKG reveals 78bpm, A-fib, and no change compared to 07/30/17 EKG. Abd xray, per radiologist , reveals no evidence for obstruction. ED physician has reviewed this radiology report and agrees. In the ED course, the patient was given GI cocktail, Lido 2% Viscous, Zofran, and Pepcid. Test results without any significant abnormality. Pt was given a GI cocktail, Zofran, and Pepcid for epigastric discomfort and burning, and her symptoms improved significantly. I believe the pt may be dealing with GERD and gastritis. She also reported that she was having some lower abd pressure radiating to her vagina. She removed the rosary beeds. Since then, the pt is having some pressure in the lower abdominal and vaginal area. I offered the pt to do a pelvic exam and pelvic US, but she declined. 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 She is hemodynamically stable and Alert and Oriented 3x. Pt is stable and will be D/C with a prescription for Omeprazole and a Dx of epigastric pain and gastritis. Pt understands and is agreeable with this plan. - Diagnoses Provider Diagnoses: Epigastric pain, Gastritis Discharge - Discharge Plan Condition: Stable Disposition: HOME Prescriptions: Omeprazole CAP* [Prilosec CAP* 20 MG] 20 mg PO DAILY #20 cap. Patient Education Materials: Gastritis (ED), Epigastric Pain (ED) Referrals: Tonya Parrish PRODUCT MANUFACTURING PROFESSIONAL [Primary Care Provider] - 3 Days Additional Instructions: RETURN TO THE EMERGENCY DEPARTMENT FOR CHANGING OR WORSENING SYMPTOMS. The documentation as recorded by the Gayatri angeles Nilda accurately reflects the service I personally performed and the decisions made by me, Mukund Oliva MD.
== END 2017-08-03 10:32 | disposition home or self-care (01) ==
LOC: ED 08:00
DX: R10.13 Epigastric pain (principal); K29.70 Gastritis, unspecified, without bleeding; I48.91 Unspecified atrial fibrillation; J44.9 Chronic obstructive pulmonary disease, unspecified; I50.9 Heart failure, unspecified; J45.909 Unspecified asthma, uncomplicated; Z99.81 Dependence on supplemental oxygen
CPT/HCPCS: 36415; 74020; 80053; 81003; 83690; 85025; 86140; 93005; 96374; 96375; 99283; A9270-GY; J1885; J2405

== ENCOUNTER 2017-10-01 14:30 | Observation (INO) | payer MEDICARE ==
[2017-10-01 15:10] LABS: ABS Basophils 0 10^3/ul (0-0.2); ABS Eosinophils 0.2 10^3/ul (0-0.6); ABS Lymphocytes 2.1 10^3/ul (1.0-4.8); ABS Neutrophils 6.9 10^3/ul (1.5-7.7); ABS Nucleated RBC 0 10^3/ul; Eosinophil % 1.7 % (0-6); Hematocrit 37 % (35-47); Hemoglobin 12.5 g/dl (12.0-16.0); Lymphocyte % 20.1 % (25-47); Mean Corpuscular HGB Conc 34 g/dl (31-36); Mean Corpuscular Hemoglobin 31 pg (27-31); Mean Corpuscular Volume 92 fL (80-97); Mean Platelet Volume 8 um3 (7.4-10.4); Nucleated Red Blood Cells % 0; Platelet Count 202 10^3/ul (150-450); Red Blood Count 4.07 10^6/ul (4.0-5.4); Red Cell Distribution Width 13 % (10.5-15); White Blood Count 10.2 10^3/ul (3.5-10.8)
[2017-10-01 15:38] LABS: EGFR Non-African American 57.7 (>60)
[2017-10-01] MEDS ORDERED: Albuterol 2.5 MG/3 ML NEB.SOL* (0.083%) INH PRN (17:49)
[2017-10-01] MEDS ORDERED: Ondansetron INJ* 2 MG/ML VIAL IV PRN (17:49)
[2017-10-01 17:52] LABS: Urine Appearance Clear; Urine Blood Negative (Negative); Urine Color Yellow; Urine Ketones Negative (Negative); Urine Protein Negative (Negative); Urine Urobilinogen Negative (Negative)
[2017-10-01] MEDS ORDERED: Docusate CAP* 100 MG PO PRN (17:54)
[2017-10-01] MEDS ORDERED: Albuterol HFA INHALER* 8 gm MDI INH PRN (17:54)
[2017-10-01] MEDS ORDERED: Acetaminophen TAB* 325 MG PO PRN (18:05)
--- NOTE | 2017-10-01 19:26 | RAD ---
Indication: Chest pain. Single frontal view of the chest performed at 1815 hours was reviewed. Comparison is made with previous exam dated July 30, 2017. No mediastinal shift is noted. Tortuous descending aorta is noted. Lung rodriguez are clear. No changes noted since July 30, 2017. IMPRESSION: NO ACTIVE CARDIOPULMONARY DISEASE IS NOTED. TORTUOUS DESCENDING AORTA.
--- NOTE | 2017-10-01 22:13 | HP ---
CC: Dr. Liz * HISTORY AND PHYSICAL: DATE OF ADMISSION: 10/01/17 PRIMARY CARE PROVIDER: Dr. Liz. ATTENDING PHYSICIAN WHILE IN THE HOSPITAL: Lisa Garcia MD * (report dictated by Attila Villatoro NP) CHIEF COMPLAINT: Chest discomfort. HISTORY OF PRESENT ILLNESS: Ms. Haro is an 81-year-old female patient. She has a history of AFib, COPD, GERD, hypertension, depression, arthritis, history of rheumatic fever and comes into our ER today stating that she intermittently over the last couple of days has been having chest discomfort in the left side of her chest lasting a few seconds at a time that can happen at any time. She states it does not specifically happen with exertion. She describes it as a funny feeling. I asked her if it feels like a pressure, tightness. She states the only thing that get tights is her epigastric area becomes tight. She denies any associated shortness of breath. She denies having any abdominal discomfort. There was no associated nausea with this or diaphoresis. She states she has not had any recent trips or long travel. There has been no abdominal discomfort. There has been no recent fevers or chills. She denied having any more rhinorrhea or sore throat, but she states the discomfort last for seconds. It has been going on for the last few days. She went to the [facility] today. They were concerned and sent her to the hospital and we were asked to evaluate due to the fact she was having chest discomfort. PAST MEDICAL HISTORY: Significant for: 1. AFib. 2. COPD. 3. GERD. 4. Hypertension. 5. Depression. 6. Arthritis. 7. Rheumatic fever. PAST SURGICAL HISTORY: 1. She has had a laparoscopic cholecystectomy. 2. Cataract extraction. 3. Tonsillectomy. MEDICATIONS: Home meds include: 1. Zoloft 50 mg daily. 2. Colace 100 mg p.o. b.i.d. as needed. 3. Prilosec 20 mg p.o. b.i.d. 4. Singulair 10 mg p.o. daily. 5. Lasix 20 to 40 mg daily. 6. Ventolin 2 puffs inhaler every 4 hours as needed. 7. Xopenex 1.25 mg inhaled q.i.d. as needed. 8. Ferrous sulfate 325 mg p.o. b.i.d. 9. Potassium 20 mEq p.o. daily. 10. [place] 2 tables p.o. t.i.d. as needed. 11. Lyrica 100 mg p.o. t.i.d. 12. Vitamin D 1000 units p.o. daily. 13. MiraLax 17 g daily. 14. Hydrocortisone one application topically b.i.d. 15. Cetirizine 10 mg p.o. daily. 16. Dyazide 1 capsule p.o. daily. 17. Diltiazem 300 mg daily. 18. Atarax 25 to 50 mg p.o. t.i.d. as needed. ALLERGIES TO MEDICATIONS: Include no known drug allergies. FAMILY HISTORY: Both her parents of old age. She specifically denied her parents having heart attacks at young ages. SOCIAL HISTORY: She is a former smoker. She does not drink alcohol. Her surrogate decision maker is her daughter. REVIEW OF SYSTEMS: There is no documented fever. She denied having any significant weight change. There was no double vision. She denies having any ear discharge. There was no rhinorrhea. No sore throat. No thyroid enlargement. There was chest discomfort from my HPI. It does not get better when she lies down. It is not positional. It is not reproducible. It does not get worse with exertion. She denies any orthopnea. No nocturnal dyspnea. There was no abdominal pain. There was no nausea or any vomiting. No dysuria. No frequency. No seizure. No loss of consciousness. No pruritus and no skin ulcerations. Review of 14 systems was completed, all others negative. PHYSICAL EXAMINATION GENERAL: At this time, Ms. Haro is an 81-year-old female patient. She is sitting in the ED stretcher. She does not appear to be in any acute distress. VITAL SIGNS: Blood pressure 128/77, pulse 87, respirations were 19, O2 sat 98% , temperature 98.1. HEENT: Head: Atraumatic, normocephalic. Eyes: EOMs are intact. Sclerae anicteric and not pale. Throat: Oral mucosa appears to be moist. No oropharyngeal erythema. NECK: Supple. LUNGS: Clear to auscultation. No wheezes, rales, rhonchi. HEART: Sounds S1 and S2. Regular rate and rhythm. No murmurs, rubs, or gallops. ABDOMEN: Soft, flat, and nontender. Bowel sounds are present. EXTREMITIES: Pulses were 2+ throughout. No peripheral edema, able to move all 4 extremities with 5/5 strength. NEUROLOGIC: The patient is awake, alert, oriented x3. Tongue is midline. Progress Clerk were equal. No gross focal deficits. SKIN: Intact. LABORATORY DATA/DIAGNOSTIC STUDIES: Today revealed a WBC of 7.2, RBC of 4.07, hemoglobin of 12.5, hematocrit of 37, and platelet count of 202. D-dimer less than 200. Sodium of 138, potassium of 3.8, chloride of 94, bicarb was 40, looking back that seems where her bicarb runs. Her BUN was 16, creatinine of 0.93. Glucose of 106, lactate 0.8, calcium 9.4, total bili 0.4, AST 17, ALT 10 , alk phos 39, and troponin 0.01, albumin of 3.6. Urine pending. She did have an EKG obtained today, which showed atrial fibrillation, rate of 76. No ST elevations or T wave inversions were noted. Compared to the previous EKG, it is similar. No acute changes were noted. Her chest x-ray is pending. Old medical records were reviewed. ASSESSMENT AND PLAN: Ms. Haro is an 81-year-old female patient coming into the ED today with atypical type chest pain but with significant risk factors for acute coronary syndrome. We were asked to evaluate for admission. She will be admitted under observation status for: 1. Chest pain. At this point, I will go ahead and cycle her troponins. We will get a lipid panel and A1c in the morning. I am going to start her on aspirin watching for nose bleeding. I will get a stress test in the morning, place her on telemetry, and we will continue to follow her closely. 2. Chronic obstructive pulmonary disease. We will continue her p.r.n. nebs. 3. Atrial fibrillation. She is not on Xarelto. She is rate controlled. The reason she is not on Xarelto is because of the nosebleed back in June, we will hold this. She does understand she is at an increased risk for stroke. 4. Hypertension. Continue meds as prescribed. 5. Gastroesophageal reflux disease. Continue her current medical regimen. She is on Prilosec. 6. Depression. Continue supportive care. 7. History of arthritis. Continue with p.r.n. Tylenol. 8. Code status. She is full code. 9. Fluids, electrolytes, and nutrition. She can have a heart-healthy diet and then n.p.o. after midnight. 10. DVT prophylaxis. We will go ahead and put the patient on SCDs because of the history of recent nose bleeding and we will continue to follow her closely. TIME SPENT: On the admission was approximately 60 minutes, greater than half the time was spent [id number] with the patient obtaining my history and physical, other half time was spent going over the plan of care with the patient and implementing plan of care. I did discuss the plan of care with my attending, Dr. Garcia; she is in agreement. ATTILA VILLATORO, LINDA [id number]/[facility] #: [id number] [place]
[2017-10-01] MEDS: Ferrous Sulfate TAB* 325 MG PO SCH (23:05)
[2017-10-01] MEDS: Pregabalin CAP(*) 100 MG PO SCH (23:06)
[2017-10-01] MEDS: Omeprazole CAP* 20 MG PO SCH (23:07)
[2017-10-01] MEDS: Heparin VIAL(*) 5000 UNITS/ML VIAL (FIVE THOUSAND) SUBCUT SCH (23:10)
[2017-10-02] MEDS: Heparin VIAL(*) 5000 UNITS/ML VIAL (FIVE THOUSAND) SUBCUT SCH ×2 (04:56→12:56)
[2017-10-02 05:37] LABS: INR 0.91 (0.77-1.02)
[2017-10-02 05:43] LABS: EGFR Non-African American 75.1 (>60)
[2017-10-02] MEDS ORDERED: Triamterene/HCTZ 37.5-25 MG* CAP PO SCH (09:00)
[2017-10-02] MEDS ORDERED: Polyethylene Glycol 3350* 17 GM PACKET PO SCH (09:00)
[2017-10-02] MEDS ORDERED: Potassium Chlor TAB* 20 MEQ TAB.ER PO SCH (09:00)
[2017-10-02] MEDS ORDERED: Cetirizine* 10 MG TAB PO SCH (09:00)
[2017-10-02] MEDS ORDERED: Montelukast Sodium TAB* 10 MG PO SCH (09:00)
[2017-10-02] MEDS ORDERED: DILTIAZEM HCL COATED BEADS PO SCH (09:00)
[2017-10-02] MEDS ORDERED: Sertraline* 50 MG TAB PO SCH (09:00)
[2017-10-02] MEDS ORDERED: Furosemide TAB* 20 MG PO SCH (09:00)
[2017-10-02] MEDS ORDERED: Aspirin EC Low Dose* 81 MG TAB.EC PO SCH (09:00)
[2017-10-02] MEDS ORDERED: Diltiazem CD CAP* 120 MG PO SCH (09:00)
[2017-10-02] MEDS ORDERED: Diltiazem CD CAP* 180 MG PO SCH (09:00)
[2017-10-02] MEDS ORDERED: Aminophylline IV* 25 MG/ML 10 ML VIAL ONE (09:58)
[2017-10-02] MEDS ORDERED: Regadenoson* 0.4 MG/5 ML SYRINGE ONE (09:58)
[2017-10-02] MEDS: Omeprazole CAP* 20 MG PO SCH (11:56)
[2017-10-02] MEDS: Ferrous Sulfate TAB* 325 MG PO SCH (11:57)
[2017-10-02] MEDS: Pregabalin CAP(*) 100 MG PO SCH (11:57)
--- NOTE | 2017-10-02 12:17 | RAD ---
Edited for charges. INDICATION: Chest pain. COMPARISON: Comparison is made with a prior study from April 25, 2016. Technique: A single day myocardial perfusion stress study was performed. Initially the resting study was performed. The patient was given an intravenous injection of 10.8 mCi of technetium 99m tetrofosmin and and the heart was imaged in multiple projections. The patient returned later in the day and under the direction of Dr. Duran, the patient was given intervenous injection of Lexiscan. Subsequently the patient was given intravenous injection of 25.0 mCi of technetium 99m tetrofosmin and the heart was imaged in multiple projections. The patient was unable to be positioned for the attenuation corrected images limiting the study. Images were reconstructed in the axial, sagittal and coronal planes and in a 3- D format. FINDINGS: There appears to be normal wall motion and myocardial thickening. The left ventricular ejection fraction was calculated to be 89%. No significant focal perfusion defects are seen after pharmacologic stress or rest. The transient ischemic dilatation ratio is within normal limits at 1.08 IMPRESSION: NO EVIDENCE FOR INFARCT OR ISCHEMIA. ASSESSMENT: Low risk. Based on imaging criteria from ACC/AHA 2002 Guideline Update for the Management of Patients With Chronic Stable Angina Table 23. Noninvasive Risk Stratification. MTDD
[2017-10-02 12:38] VITALS: BP 149/95
--- NOTE | 2017-10-02 21:07 | PN ---
Subjective Date of Service: 10/02/17 Interval History: states that she feels better denies any chest pain or shortness of breath, Denies abd pain or V/D. States that she was a little nauseated after the medication she received during the stress test but that has subsided. Family History: Unchanged from Admission Social History: Unchanged from Admission Past Medical History: Unchanged from Admission Objective Oxygen Devices in Use Now: Nasal Cannula Appearance: appears comfortable Eyes: No Scleral Icterus Ears/Nose/Mouth/Throat: Clear Oropharnyx, Mucous Membranes Moist Neck: NL Appearance and Movements; NL JVP, Trachea Midline Respiratory: Symmetrical Chest Expansion and Respiratory Effort, Clear to Auscultation Cardiovascular: NL Sounds; No Murmurs; No JVD, No Edema Abdominal: NL Sounds; No Tenderness; No Distention Extremities: No Edema, No Clubbing, Cyanosis Skin: No Rash or Ulcers Neurological: Alert and Oriented x 3, NL Gait Nutrition: Taking PO's Result Diagrams: 10/01/17 14:59 10/02/17 05:07 Assess/Plan/Problems-Billing Assessment: Ms. Haro is an 81 y.o female that presented to the emergency room with chest pain. She carries a history of A-fib, GERD ,COPD HTN and depression. She was admitted for r/o NE - Patient Problems (1) Atrial fibrillation Status: Acute Code(s): I48.91 - UNSPECIFIED ATRIAL FIBRILLATION SNOMED Code( s): 11056167 Comment: Rate controlled on diltiazem 300mg daily. Xarelto on hold because patient had a nose bleed in the past . (2) COPD (chronic obstructive pulmonary disease) Status: Acute Code(s): J44.9 - CHRONIC OBSTRUCTIVE PULMONARY DISEASE, UNSPECIFIED SNOMED Code(s): 42893024 Comment: No signs of exacerbation. Continue O2 at 2L which is her home setting. (3) Chest pain Status: Acute Code(s): R07.9 - CHEST PAIN, UNSPECIFIED SNOMED Code(s): 43772075 Comment: Resolved. Troponin was flat. Nuclear stress was- LOW risk (4) Depression Status: Acute Code(s): F32.9 - MAJOR DEPRESSIVE DISORDER, SINGLE EPISODE, UNSPECIFIED SNOMED Code(s): 67280709 Comment: Continue sertraline. (5) Hypertension Status: Acute Code(s): I10 - ESSENTIAL (PRIMARY) HYPERTENSION SNOMED Code(s) : 13867694 Comment: BP remains under good control. Continue diltiazem. (6) DVT prophylaxis Status: Acute Code(s): NFR9199 - SNOMED Code(s): 913493874 Comment: SCDs/ambulation alone secondary to significant epistaxis. (7) Full code status Status: Acute Code(s): Z78.9 - OTHER SPECIFIED HEALTH STATUS SNOMED Code(s) : 241944714 (8) Hypokalemia Status: Acute Code(s): E87.6 - HYPOKALEMIA SNOMED Code(s): 85773432 Comment: Potassium 20 eva po given Status and Disposition: Nuclear stress was negative- will discharge home
--- NOTE | 2017-10-03 17:53 | DS ---
DISCHARGE SUMMARY: DATE OF ADMISSION: 10/01/17 DATE OF DISCHARGE: 10/02/17 ATTENDING PHYSICIAN WHILE IN THE HOSPITAL: Dr. Zhanna Corado * (dictated by Christine Liu NP). PRIMARY CARE PROVIDER: Tonya Parrish NP PRIMARY DIAGNOSIS: Chest pain. SECONDARY DIAGNOSES: 1. Atrial fibrillation. 2. Chronic obstructive pulmonary disease. 3. Gastroesophageal reflux disease. 4. Hypertension. 5. Depression. 6. Arthritis. 7. Rheumatic fever. STUDIES WHILE IN THE HOSPITAL: The patient did have a chest x-ray on 10/01/17. Radiologist's impression: No active cardiopulmonary disease, torturous descending aorta. She did also have a nuclear stress test. Her stress report was low risk, impression was no evidence for infarct or ischemia. DISCHARGE MEDICATIONS: She will resume all of her home medications. There were no new medications added. 1. Zoloft 50 mg p.o. daily. 2. Colace 100 mg p.o. b.i.d. 3. Omeprazole 20 mg p.o. b.i.d. 4. Singulair 10 mg p.o. daily. 5. Furosemide 20 to 40 mg p.o. daily. 6. Albuterol HFA inhaler 2 puffs q.4 hours as needed for shortness of breath. 7. Xopenex 1.25 inhaled four times a day p.r.n. 8. Ferrous sulfate 325 mg p.o. b.i.d. 9. Potassium chloride 20 mEq p.o. daily. 10. Hydrocodone/acetaminophen 10/325 two tablets t.i.d. p.r.n. pain. 11. Lyrica 100 mg p.o. t.i.d. 12. Vitamin D 1000 units p.o. daily. 13. MiraLAX 17 g p.o. daily. 14. Hydrocortisone 1% apply topically b.i.d. 15. Zyrtec 10 mg p.o. daily. 16. Dyazide 1 cap p.o. daily. 17. Diltiazem 300 mg p.o. daily. 18. Atarax 25 mg p.o. t.i.d. p.r.n. HISTORY OF PRESENT ILLNESS AND HOSPITAL COURSE: Ms. Haro is an 81-year-old female with a history of AFib, COPD, GERD, hypertension, depression, arthritis, and a history of rheumatic fever, who came to the ER stating she has had intermittent chest pain over the past couple of days on the left side of her chest lasting a few seconds at a time. That could happen anytime. She states that it does not specifically happen with exertion. She states that the pain feels like a pressure and tightness. She denies any shortness of breath or abdominal discomfort. She denies any nausea or diaphoresis with these episodes. She denies any recent sick contacts. Denies any rhinorrhea or sore throat. Given her medical history, she was brought into the hospital for further evaluation of the chest pain. During her stay, she had routine lab work. Her labs were essentially within normal limits. Her troponin was flat at 0.01 and 0.00 and 0.00. Her potassium, she was hypokalemic with a potassium of 3.3, that was replaced with 20 mEq of potassium. During the hospitalization, she had a nuclear stress test, which was low risk and radiologist's impression: there was no ischemia or infarct noted. At this time, Ms. Haro is denying any chest pain. She denies any shortness of breath and she feels that she is at her baseline. At this time, I feel she is stable to be discharged home. Ms. Haro will be discharged back home. Vital signs are as follows: Temp was 97.7, heart rate 103, respirations were 18, O2 saturation was 99% on 3 L, blood pressure was 149/95. DISCHARGE PLAN: 1. Ms. Haro will be discharged back home with her . 2. Activity as tolerated. 3. She can resume a heart healthy diet. 4. I recommend that she follows up with her primary care provider, Tonya Parrish NP, in 4 to 7 days. I also recommend that she follows up with her Electrical Machinist next week and resume all of her home medication. She was instructed to return to the emergency room with any chest pain or shortness of breath or any worsening in her symptoms. The patient and verbalized understanding. This is a summary of her hospitalization. For further details, see her entire medical record. TIME SPENT: Time spent on this discharge was approximately 60 minutes, greater than half that time was spent with the patient discussing her discharge plan and implementing those instructions. CHRISTINE LIU, CELL ROOM OPERATOR [id number]/[facility] #: [id number] [facility] HOSPITALIman
== END 2017-10-02 15:31 | disposition home or self-care (01) ==
LOC: ED 14:30 → MEDTELE 17:42
PROVIDERS: ADMIT Internal Medicine; ATTEND Internal Medicine
DX: R07.9 Chest pain, unspecified (principal); I48.2 Chronic atrial fibrillation; J44.9 Chronic obstructive pulmonary disease, unspecified; I10 Essential (primary) hypertension; K21.9 Gastro-esophageal reflux disease without esophagitis; F32.9 Major depressive disorder, single episode, unspecified; Z78.9 Other specified health status; I00 Rheumatic fever without heart involvement; E87.6 Hypokalemia; M19.90 Unspecified osteoarthritis, unspecified site
CPT/HCPCS: 36415; 71045; 78452; 80048; 80053; 80061; 81003; 83036; 83605; 84484; 85025; 85379; 85610; 93005; 93017; 96374; 99284; A9270-GY; A9502; G0378; J0280; J1644; J2785

== ENCOUNTER 2020-07-09 01:01 | Inpatient (IN) ==
[2020-07-09] MEDS ORDERED: Dexamethasone IV 4 MG/ML VIAL 1 ml VIAL PO ONE (01:27)
[2020-07-09 01:39] LABS: ABS Lymphocytes 0.7 10^3/ul (1.0-4.8); ABS Monocytes 1.1 10^3/ul (0-0.8); ABS Neutrophils 7.6 10^3/ul (1.5-7.7); Eosinophil % 0.1 %; Hematocrit 44 % (35-47); Hemoglobin 14.8 g/dL (12.0-16.0); Lymphocyte % 7.3 %; Mean Corpuscular HGB Conc 34 g/dL (31-36); Mean Corpuscular Hemoglobin 31 pg (27-31); Mean Corpuscular Volume 91 fL (80-97); Mean Platelet Volume 9.1 fL (7.4-10.4); Platelet Count 232 10^3/uL (150-450); Red Blood Count 4.84 10^6 /uL (3.70-4.87); Red Cell Distribution Width 13 % (10-15); White Blood Count 9.4 10^3/uL (3.5-10.8)
[2020-07-09 01:54] LABS: Activated Partial Thrombo Time 26.7 seconds (26.0-38.0); INR 1.06 (0.82-1.09)
[2020-07-09 02:06] LABS: Albumin 4.1 g/dL (3.2-5.2); BUN/Creatinine Ratio 24.7 (8-20); Calcium 9.8 mg/dL (8.6-10.3); EGFR African American 69.3 (>60); EGFR Non-African American 57.3 (>60); Globulin 4.3 g/dL (2-4); Potassium 3.4 mmol/L (3.5-5.0); Total Bilirubin 0.9 mg/dL (0.2-1.0); Total Protein 8.4 g/dL (6.4-8.9)
[2020-07-09 02:08] LABS: Troponin I 0.01 ng/mL (<0.03)
[2020-07-09] MEDS ORDERED: Potassium Chlor 20 meq TAB.ER PO ONE (02:30)
[2020-07-09] MEDS ORDERED: Ondansetron 4 mg VIAL 2 MG/ML 2 ml VIAL IV PRN (03:21)
[2020-07-09 03:31] LABS: C Reactive Protein 111.05 mg/L (<8.01); Magnesium 2.1 mg/dL (1.9-2.7)
[2020-07-09] MEDS ORDERED: Albuterol HFA INHALER 8 gm MDI INH ONE (03:36)
[2020-07-09] MEDS: Albuterol HFA INHALER 8 gm MDI INH PRN ×2 (03:45→21:44)
[2020-07-09] MEDS: Cholecalciferol (VIT D3) 1,000 unit TAB PO SCH (08:51)
[2020-07-09] MEDS: Enoxaparin 40 MG/0.4 ML SYR SUBCUT SCH (08:51)
[2020-07-09] MEDS: Potassium Chlor 20 meq TAB.ER PO SCH (08:53)
[2020-07-09] MEDS ORDERED: Polyethyl Glycol/Propylene Gly OPHTH.SOLN BOTH EYES SCH (09:00)
[2020-07-09] MEDS: cefTRIAXone 1 gm/50 mL NS BAG 1 GM/50 ML BAG IVPB SCH (12:51)
[2020-07-09] MEDS: CMCS:Venlafaxine 25 mg TAB (NF) PO SCH (12:52)
[2020-07-09] MEDS: SPIRIVA Respimat (tiotropium) 2.5 mcg/inh Inhaler INH SCH (15:35)
[2020-07-10] MEDS: Enoxaparin 40 MG/0.4 ML SYR SUBCUT SCH (04:51)
[2020-07-10 07:40] LABS: ABS Lymphocytes 0.5 10^3/ul (1.0-4.8); ABS Monocytes 0.9 10^3/ul (0-0.8); ABS Neutrophils 9.8 10^3/ul (1.5-7.7); Hematocrit 40 % (35-47); Hemoglobin 13.4 g/dL (12.0-16.0); Lymphocyte % 4.1 %; Mean Corpuscular HGB Conc 33 g/dL (31-36); Mean Corpuscular Hemoglobin 30 pg (27-31); Mean Corpuscular Volume 91 fL (80-97); Mean Platelet Volume 8.6 fL (7.4-10.4); Platelet Count 256 10^3/uL (150-450); Red Blood Count 4.43 10^6 /uL (3.70-4.87); Red Cell Distribution Width 13 % (10-15); White Blood Count 11.2 10^3/uL (3.5-10.8)
[2020-07-10 07:42] LABS: BUN/Creatinine Ratio 31.5 (8-20); Calcium 9.3 mg/dL (8.6-10.3); EGFR African American 70.2 (>60); Potassium 3.8 mmol/L (3.5-5.0)
[2020-07-10 08:41] LABS: Ferritin 335.7 ng/mL (11-307)
[2020-07-10] MEDS: CMCS:Venlafaxine 25 mg TAB (NF) PO SCH (09:58)
[2020-07-10] MEDS: Potassium Chlor 20 meq TAB.ER PO SCH (09:58)
[2020-07-10] MEDS: Cholecalciferol (VIT D3) 1,000 unit TAB PO SCH (09:59)
[2020-07-10] MEDS: SPIRIVA Respimat (tiotropium) 2.5 mcg/inh Inhaler INH SCH (12:30)
[2020-07-10] MEDS: cefTRIAXone 1 gm/50 mL NS BAG 1 GM/50 ML BAG IVPB SCH (12:43)
[2020-07-11] MEDS: Enoxaparin 40 MG/0.4 ML SYR SUBCUT SCH (05:24)
[2020-07-11 07:31] LABS: ABS Lymphocytes 0.4 10^3/ul (1.0-4.8); ABS Monocytes 0.3 10^3/ul (0-0.8); ABS Neutrophils 8.4 10^3/ul (1.5-7.7); Hematocrit 38 % (35-47); Hemoglobin 12.8 g/dL (12.0-16.0); Lymphocyte % 4.6 %; Mean Corpuscular HGB Conc 34 g/dL (31-36); Mean Corpuscular Hemoglobin 31 pg (27-31); Mean Corpuscular Volume 91 fL (80-97); Mean Platelet Volume 8.6 fL (7.4-10.4); Platelet Count 259 10^3/uL (150-450); Red Blood Count 4.19 10^6 /uL (3.70-4.87); Red Cell Distribution Width 13 % (10-15); White Blood Count 9.1 10^3/uL (3.5-10.8)
[2020-07-11 07:39] LABS: BUN/Creatinine Ratio 34.1 (8-20); C Reactive Protein 20.16 mg/L (<8.01); Calcium 9.1 mg/dL (8.6-10.3); EGFR African American 80.2 (>60); EGFR Non-African American 66.3 (>60); Potassium 4.3 mmol/L (3.5-5.0)
[2020-07-11] MEDS: CMCS:Venlafaxine 25 mg TAB (NF) PO SCH (10:27)
[2020-07-11] MEDS: Potassium Chlor 20 meq TAB.ER PO SCH (10:28)
[2020-07-11] MEDS: Cholecalciferol (VIT D3) 1,000 unit TAB PO SCH (10:29)
[2020-07-11] MEDS: cefTRIAXone 1 gm/50 mL NS BAG 1 GM/50 ML BAG IVPB SCH (13:30)
[2020-07-11] MEDS: SPIRIVA Respimat (tiotropium) 2.5 mcg/inh Inhaler INH SCH (16:35)
[2020-07-11] MEDS: Enoxaparin 60 MG/0.6 ML SYR SUBCUT SCH (23:43)
[2020-07-12] MEDS: SPIRIVA Respimat (tiotropium) 2.5 mcg/inh Inhaler INH SCH ×2 (07:17→08:42)
[2020-07-12] MEDS: Cholecalciferol (VIT D3) 1,000 unit TAB PO SCH (09:49)
[2020-07-12] MEDS: CMCS:Venlafaxine 25 mg TAB (NF) PO SCH (09:49)
[2020-07-12] MEDS: Potassium Chlor 20 meq TAB.ER PO SCH (09:54)
[2020-07-12] MEDS: Enoxaparin 60 MG/0.6 ML SYR SUBCUT SCH ×2 (09:59→20:07)
[2020-07-12] MEDS: cefTRIAXone 1 gm/50 mL NS BAG 1 GM/50 ML BAG IVPB SCH (12:53)
[2020-07-12] MEDS ORDERED: Polyethylene Glycol 3350 17 GM PACKET PO PRN (13:20)
[2020-07-13] MEDS: SPIRIVA Respimat (tiotropium) 2.5 mcg/inh Inhaler INH SCH (09:03)
[2020-07-13] MEDS: CMCS:Venlafaxine 25 mg TAB (NF) PO SCH (09:08)
[2020-07-13] MEDS: Cholecalciferol (VIT D3) 1,000 unit TAB PO SCH (09:10)
[2020-07-13] MEDS: Potassium Chlor 20 meq TAB.ER PO SCH (09:15)
[2020-07-13] MEDS: Enoxaparin 60 MG/0.6 ML SYR SUBCUT SCH ×2 (09:24→22:09)
[2020-07-13] MEDS: cefTRIAXone 1 gm/50 mL NS BAG 1 GM/50 ML BAG IVPB SCH (12:57)
[2020-07-13] MEDS: Albuterol HFA INHALER 8 gm MDI INH PRN (22:20)
[2020-07-14] MEDS: SPIRIVA Respimat (tiotropium) 2.5 mcg/inh Inhaler INH SCH (08:11)
[2020-07-14] MEDS: Enoxaparin 60 MG/0.6 ML SYR SUBCUT SCH (08:57)
[2020-07-14] MEDS: CMCS:Venlafaxine 25 mg TAB (NF) PO SCH (08:57)
[2020-07-14] MEDS: Potassium Chlor 20 meq TAB.ER PO SCH (08:58)
[2020-07-14] MEDS: Cholecalciferol (VIT D3) 1,000 unit TAB PO SCH (08:59)
[2020-07-14 11:03] VITALS: BP 119/75
== END 2020-07-14 11:15 | disposition swing bed (61) | DRG 178 ==
LOC: ED 01:01 → MED 03:21
PROVIDERS: ADMIT Internal Medicine; ATTEND Hospitalist

== ENCOUNTER 2020-07-14 12:01 | Inpatient (IN) ==
[2020-07-14] MEDS: Enoxaparin 60 MG/0.6 ML SYR SUBCUT SCH (22:09)
[2020-07-14] MEDS: Nystatin SUSPENSION 100,000 UNITS/ML UDC PO SCH (22:09)
[2020-07-14] MEDS: Albuterol HFA INHALER 8 gm MDI INH PRN (22:13)
[2020-07-15] MEDS: SPIRIVA Respimat (tiotropium) 2.5 mcg/inh Inhaler INH SCH (07:23)
[2020-07-15] MEDS: Nystatin SUSPENSION 100,000 UNITS/ML UDC PO SCH ×4 (10:19→21:03)
[2020-07-15] MEDS: Enoxaparin 60 MG/0.6 ML SYR SUBCUT SCH ×2 (10:19→20:57)
[2020-07-15] MEDS: VENLAFAXINE 25 MG PO SCH (10:19)
[2020-07-15] MEDS: Cholecalciferol (VIT D3) 1,000 unit TAB PO SCH (10:20)
[2020-07-15] MEDS: Potassium Chlor 20 meq TAB.ER PO SCH (10:20)
[2020-07-15] MEDS: Albuterol HFA INHALER 8 gm MDI INH PRN (21:34)
[2020-07-16] MEDS: SPIRIVA Respimat (tiotropium) 2.5 mcg/inh Inhaler INH SCH (08:24)
[2020-07-16] MEDS: Enoxaparin 60 MG/0.6 ML SYR SUBCUT SCH ×2 (09:41→21:38)
[2020-07-16] MEDS: VENLAFAXINE 25 MG PO SCH (09:41)
[2020-07-16] MEDS: Nystatin SUSPENSION 100,000 UNITS/ML UDC PO SCH ×4 (09:41→21:40)
[2020-07-16] MEDS: Potassium Chlor 20 meq TAB.ER PO SCH (09:42)
[2020-07-16] MEDS: Cholecalciferol (VIT D3) 1,000 unit TAB PO SCH (09:43)
[2020-07-17] MEDS: SPIRIVA Respimat (tiotropium) 2.5 mcg/inh Inhaler INH SCH (07:21)
[2020-07-17] MEDS: Nystatin SUSPENSION 100,000 UNITS/ML UDC PO SCH ×4 (10:46→20:52)
[2020-07-17] MEDS: Enoxaparin 60 MG/0.6 ML SYR SUBCUT SCH ×2 (10:46→20:52)
[2020-07-17] MEDS: VENLAFAXINE 25 MG PO SCH (10:46)
[2020-07-17] MEDS: Potassium Chlor 20 meq TAB.ER PO SCH (10:46)
[2020-07-17] MEDS: Polyethylene Glycol 3350 17 GM PACKET PO PRN (10:48)
[2020-07-17] MEDS: Cholecalciferol (VIT D3) 1,000 unit TAB PO SCH (10:48)
[2020-07-17] MEDS: Albuterol HFA INHALER 8 gm MDI INH PRN (15:07)
[2020-07-18] MEDS: SPIRIVA Respimat (tiotropium) 2.5 mcg/inh Inhaler INH SCH (07:20)
[2020-07-18] MEDS: Potassium Chlor 20 meq TAB.ER PO SCH (09:19)
[2020-07-18] MEDS: Polyethylene Glycol 3350 17 GM PACKET PO PRN (09:19)
[2020-07-18] MEDS: Cholecalciferol (VIT D3) 1,000 unit TAB PO SCH (09:19)
[2020-07-18] MEDS: Nystatin SUSPENSION 100,000 UNITS/ML UDC PO SCH ×4 (09:19→21:54)
[2020-07-18] MEDS: Enoxaparin 60 MG/0.6 ML SYR SUBCUT SCH ×2 (09:20→21:54)
[2020-07-18] MEDS: VENLAFAXINE 25 MG PO SCH (09:20)
[2020-07-19] MEDS: SPIRIVA Respimat (tiotropium) 2.5 mcg/inh Inhaler INH SCH (07:33)
[2020-07-19] MEDS: Cholecalciferol (VIT D3) 1,000 unit TAB PO SCH (09:50)
[2020-07-19] MEDS: Enoxaparin 60 MG/0.6 ML SYR SUBCUT SCH ×2 (09:50→22:36)
[2020-07-19] MEDS: Nystatin SUSPENSION 100,000 UNITS/ML UDC PO SCH ×4 (09:50→22:39)
[2020-07-19] MEDS: Potassium Chlor 20 meq TAB.ER PO SCH (09:51)
[2020-07-19] MEDS: VENLAFAXINE 25 MG PO SCH (09:51)
[2020-07-20] MEDS: SPIRIVA Respimat (tiotropium) 2.5 mcg/inh Inhaler INH SCH (07:19)
[2020-07-20] MEDS: Cholecalciferol (VIT D3) 1,000 unit TAB PO SCH (09:24)
[2020-07-20] MEDS: Enoxaparin 60 MG/0.6 ML SYR SUBCUT SCH ×2 (09:25→21:02)
[2020-07-20] MEDS: VENLAFAXINE 25 MG PO SCH (09:25)
[2020-07-20] MEDS: Nystatin SUSPENSION 100,000 UNITS/ML UDC PO SCH ×4 (09:25→21:02)
[2020-07-20] MEDS: Potassium Chlor 20 meq TAB.ER PO SCH (09:25)
[2020-07-21] MEDS: Nystatin SUSPENSION 100,000 UNITS/ML UDC PO SCH ×3 (08:29→17:40)
[2020-07-21] MEDS: VENLAFAXINE 25 MG PO SCH (08:31)
[2020-07-21] MEDS: Potassium Chlor 20 meq TAB.ER PO SCH (08:31)
[2020-07-21] MEDS: Cholecalciferol (VIT D3) 1,000 unit TAB PO SCH (08:34)
[2020-07-21] MEDS: Enoxaparin 60 MG/0.6 ML SYR SUBCUT SCH ×2 (08:38→21:45)
[2020-07-21] MEDS: SPIRIVA Respimat (tiotropium) 2.5 mcg/inh Inhaler INH SCH (09:56)
[2020-07-22] MEDS: Potassium Chlor 20 meq TAB.ER PO SCH (09:20)
[2020-07-22] MEDS: VENLAFAXINE 25 MG PO SCH (09:20)
[2020-07-22] MEDS: Cholecalciferol (VIT D3) 1,000 unit TAB PO SCH (09:21)
[2020-07-22] MEDS: Enoxaparin 60 MG/0.6 ML SYR SUBCUT SCH ×2 (09:21→21:10)
[2020-07-22] MEDS: SPIRIVA Respimat (tiotropium) 2.5 mcg/inh Inhaler INH SCH (09:24)
[2020-07-23] MEDS: SPIRIVA Respimat (tiotropium) 2.5 mcg/inh Inhaler INH SCH (07:52)
[2020-07-23] MEDS: VENLAFAXINE 25 MG PO SCH (08:23)
[2020-07-23] MEDS: Potassium Chlor 20 meq TAB.ER PO SCH (08:24)
[2020-07-23] MEDS: Enoxaparin 60 MG/0.6 ML SYR SUBCUT SCH ×2 (08:24→21:48)
[2020-07-23] MEDS: Cholecalciferol (VIT D3) 1,000 unit TAB PO SCH (08:24)
[2020-07-24] MEDS: SPIRIVA Respimat (tiotropium) 2.5 mcg/inh Inhaler INH SCH (07:40)
[2020-07-24] MEDS: Potassium Chlor 20 meq TAB.ER PO SCH (09:10)
[2020-07-24] MEDS: Cholecalciferol (VIT D3) 1,000 unit TAB PO SCH (09:10)
[2020-07-24] MEDS: Enoxaparin 60 MG/0.6 ML SYR SUBCUT SCH ×2 (09:18→20:28)
[2020-07-24] MEDS: VENLAFAXINE 25 MG PO SCH (09:28)
[2020-07-25] MEDS: SPIRIVA Respimat (tiotropium) 2.5 mcg/inh Inhaler INH SCH (07:30)
[2020-07-25] MEDS: VENLAFAXINE 25 MG PO SCH (08:05)
[2020-07-25] MEDS: Cholecalciferol (VIT D3) 1,000 unit TAB PO SCH (08:06)
[2020-07-25] MEDS: Potassium Chlor 20 meq TAB.ER PO SCH (08:08)
[2020-07-25] MEDS: Enoxaparin 60 MG/0.6 ML SYR SUBCUT SCH ×2 (08:08→20:27)
[2020-07-26] MEDS: SPIRIVA Respimat (tiotropium) 2.5 mcg/inh Inhaler INH SCH (09:19)
[2020-07-26] MEDS: Cholecalciferol (VIT D3) 1,000 unit TAB PO SCH (09:27)
[2020-07-26] MEDS: Potassium Chlor 20 meq TAB.ER PO SCH (09:30)
[2020-07-26] MEDS: VENLAFAXINE 25 MG PO SCH (09:31)
[2020-07-26] MEDS: Enoxaparin 60 MG/0.6 ML SYR SUBCUT SCH ×2 (09:34→20:51)
[2020-07-27] MEDS: SPIRIVA Respimat (tiotropium) 2.5 mcg/inh Inhaler INH SCH (07:27)
[2020-07-27] MEDS: VENLAFAXINE 25 MG PO SCH (09:01)
[2020-07-27] MEDS: Potassium Chlor 20 meq TAB.ER PO SCH (09:02)
[2020-07-27] MEDS: Cholecalciferol (VIT D3) 1,000 unit TAB PO SCH (09:04)
[2020-07-27] MEDS: Enoxaparin 60 MG/0.6 ML SYR SUBCUT SCH ×2 (09:05→20:35)
[2020-07-27] MEDS: HYDROcodone/ACETAMIN 5/325 mg TAB PO PRN (20:35)
[2020-07-28] MEDS: HYDROcodone/ACETAMIN 5/325 mg TAB PO PRN ×2 (03:06→09:24)
[2020-07-28 06:42] LABS: BUN/Creatinine Ratio 35.9 (8-20); Calcium 8.9 mg/dL (8.6-10.3); EGFR African American 84.9 (>60); EGFR Non-African American 70.2 (>60); Potassium 3.6 mmol/L (3.5-5.0)
[2020-07-28] MEDS: SPIRIVA Respimat (tiotropium) 2.5 mcg/inh Inhaler INH SCH (07:44)
[2020-07-28] MEDS: Cholecalciferol (VIT D3) 1,000 unit TAB PO SCH (09:17)
[2020-07-28] MEDS: Potassium Chlor 20 meq TAB.ER PO SCH (09:17)
[2020-07-28] MEDS: VENLAFAXINE 25 MG PO SCH (09:24)
[2020-07-28] MEDS: Enoxaparin 60 MG/0.6 ML SYR SUBCUT SCH ×2 (09:30→19:29)
[2020-07-29] MEDS: SPIRIVA Respimat (tiotropium) 2.5 mcg/inh Inhaler INH SCH (08:35)
[2020-07-29] MEDS: Enoxaparin 60 MG/0.6 ML SYR SUBCUT SCH ×2 (11:08→21:08)
[2020-07-29] MEDS: Potassium Chlor 20 meq TAB.ER PO SCH (11:09)
[2020-07-29] MEDS: VENLAFAXINE 25 MG PO SCH (11:11)
[2020-07-29] MEDS: Cholecalciferol (VIT D3) 1,000 unit TAB PO SCH (11:13)
[2020-07-29] MEDS: HYDROcodone/ACETAMIN 5/325 mg TAB PO PRN ×2 (15:04→21:10)
[2020-07-29 16:23] LABS: Urine Appearance Cloudy; Urine Bilirubin Negative (Negative); Urine Blood 1+ (Negative); Urine Color Yellow; Urine Glucose Negative (Negative); Urine Ketones Negative (Negative); Urine Nitrite Negative (Negative); Urine Protein Negative (Negative); Urine Specific Gravity 1.012 (1.010-1.030); Urine Urobilinogen Negative (Negative)
[2020-07-29 16:31] LABS: Urine Bacteria 1+ (Absent); Urine Red Blood Cell 2+(6-10/hpf) (Absent); Urine Squamous Epithelial Cell Present (Absent); Urine Transitional Epithelial Present (Absent); Urine White Blood Cell 3+(>20/hpf) (Absent)
[2020-07-30] MEDS ORDERED: Calcium Carb (TUMS) 500 mg CHEW TAB PO PRN (01:58)
[2020-07-30] MEDS: VENLAFAXINE 25 MG PO SCH (08:38)
[2020-07-30] MEDS: Cholecalciferol (VIT D3) 1,000 unit TAB PO SCH (08:38)
[2020-07-30] MEDS: Potassium Chlor 20 meq TAB.ER PO SCH (08:39)
[2020-07-30] MEDS: HYDROcodone/ACETAMIN 5/325 mg TAB PO PRN ×2 (08:41→20:23)
[2020-07-30] MEDS: Enoxaparin 60 MG/0.6 ML SYR SUBCUT SCH ×2 (08:42→20:23)
[2020-07-30] MEDS: SPIRIVA Respimat (tiotropium) 2.5 mcg/inh Inhaler INH SCH (08:51)
[2020-07-31] MEDS: VENLAFAXINE 25 MG PO SCH (07:46)
[2020-07-31] MEDS: Potassium Chlor 20 meq TAB.ER PO SCH (07:46)
[2020-07-31] MEDS: HYDROcodone/ACETAMIN 5/325 mg TAB PO PRN ×2 (07:46→08:06)
[2020-07-31] MEDS: Cholecalciferol (VIT D3) 1,000 unit TAB PO SCH (07:46)
[2020-07-31] MEDS: Enoxaparin 60 MG/0.6 ML SYR SUBCUT SCH ×2 (07:56→21:42)
[2020-07-31] MEDS: SPIRIVA Respimat (tiotropium) 2.5 mcg/inh Inhaler INH SCH (09:17)
[2020-08-01] MEDS: HYDROcodone/ACETAMIN 5/325 mg TAB PO PRN ×3 (03:01→18:35)
[2020-08-01] MEDS: Potassium Chlor 20 meq TAB.ER PO SCH (08:15)
[2020-08-01] MEDS: Enoxaparin 60 MG/0.6 ML SYR SUBCUT SCH ×2 (08:15→23:07)
[2020-08-01] MEDS: Cholecalciferol (VIT D3) 1,000 unit TAB PO SCH (08:15)
[2020-08-01] MEDS: VENLAFAXINE 25 MG PO SCH (08:15)
[2020-08-01] MEDS: SPIRIVA Respimat (tiotropium) 2.5 mcg/inh Inhaler INH SCH (08:58)
[2020-08-02] MEDS: HYDROcodone/ACETAMIN 5/325 mg TAB PO PRN ×3 (01:21→17:37)
[2020-08-02] MEDS: SPIRIVA Respimat (tiotropium) 2.5 mcg/inh Inhaler INH SCH (07:41)
[2020-08-02] MEDS: VENLAFAXINE 25 MG PO SCH (09:35)
[2020-08-02] MEDS: Cholecalciferol (VIT D3) 1,000 unit TAB PO SCH (09:36)
[2020-08-02] MEDS: Potassium Chlor 20 meq TAB.ER PO SCH (09:36)
[2020-08-02] MEDS: Enoxaparin 60 MG/0.6 ML SYR SUBCUT SCH ×2 (09:36→19:53)
[2020-08-03] MEDS: SPIRIVA Respimat (tiotropium) 2.5 mcg/inh Inhaler INH SCH (08:35)
[2020-08-03] MEDS: VENLAFAXINE 25 MG PO SCH (09:41)
[2020-08-03] MEDS: Cholecalciferol (VIT D3) 1,000 unit TAB PO SCH (09:41)
[2020-08-03] MEDS: Potassium Chlor 20 meq TAB.ER PO SCH (09:41)
[2020-08-03] MEDS: HYDROcodone/ACETAMIN 5/325 mg TAB PO PRN ×3 (11:54→21:08)
[2020-08-03] MEDS: Enoxaparin 60 MG/0.6 ML SYR SUBCUT SCH ×2 (11:54→21:10)
[2020-08-04] MEDS: SPIRIVA Respimat (tiotropium) 2.5 mcg/inh Inhaler INH SCH (07:19)
[2020-08-04] MEDS: HYDROcodone/ACETAMIN 5/325 mg TAB PO PRN ×3 (07:25→19:44)
[2020-08-04] MEDS: Cholecalciferol (VIT D3) 1,000 unit TAB PO SCH (07:28)
[2020-08-04] MEDS: VENLAFAXINE 25 MG PO SCH (07:30)
[2020-08-04] MEDS: Potassium Chlor 20 meq TAB.ER PO SCH (07:31)
[2020-08-04] MEDS: Enoxaparin 60 MG/0.6 ML SYR SUBCUT SCH ×2 (07:32→19:44)
[2020-08-05] MEDS: HYDROcodone/ACETAMIN 5/325 mg TAB PO PRN ×2 (03:39→16:52)
[2020-08-05] MEDS: SPIRIVA Respimat (tiotropium) 2.5 mcg/inh Inhaler INH SCH (08:23)
[2020-08-05] MEDS: Enoxaparin 60 MG/0.6 ML SYR SUBCUT SCH ×2 (08:52→21:59)
[2020-08-05] MEDS: Potassium Chlor 20 meq TAB.ER PO SCH (08:53)
[2020-08-05] MEDS: Cholecalciferol (VIT D3) 1,000 unit TAB PO SCH (08:53)
[2020-08-05] MEDS: VENLAFAXINE 25 MG PO SCH (09:53)
[2020-08-06] MEDS: SPIRIVA Respimat (tiotropium) 2.5 mcg/inh Inhaler INH SCH (07:47)
[2020-08-06] MEDS: Potassium Chlor 20 meq TAB.ER PO SCH (09:24)
[2020-08-06] MEDS: HYDROcodone/ACETAMIN 5/325 mg TAB PO PRN ×2 (09:25→17:30)
[2020-08-06] MEDS: VENLAFAXINE 25 MG PO SCH (09:25)
[2020-08-06] MEDS: Cholecalciferol (VIT D3) 1,000 unit TAB PO SCH (09:26)
[2020-08-06] MEDS: Enoxaparin 60 MG/0.6 ML SYR SUBCUT SCH ×2 (10:39→22:26)
[2020-08-07] MEDS: SPIRIVA Respimat (tiotropium) 2.5 mcg/inh Inhaler INH SCH (08:24)
[2020-08-07 08:45] LABS: Hematocrit 33 % (35-47); Mean Corpuscular HGB Conc 34 g/dL (31-36); Mean Corpuscular Hemoglobin 30 pg (27-31); Mean Corpuscular Volume 89 fL (80-97); Mean Platelet Volume 7.2 fL (7.4-10.4); Platelet Count 289 10^3/uL (150-450); Red Blood Count 3.65 10^6 /uL (3.70-4.87); Red Cell Distribution Width 14 % (10-15); White Blood Count 9.3 10^3/uL (3.5-10.8)
[2020-08-07 09:17] LABS: ABS Basophils 0.1 10^3/ul (0-0.2); ABS Eosinophils 0.5 10^3/ul (0-0.6); ABS Lymphocytes 1.2 10^3/ul (1.0-4.8); ABS Monocytes 1.4 10^3/ul (0-0.8); ABS Neutrophils 6.1 10^3/ul (1.5-7.7); Eosinophil % 5.2 %; Lymphocyte % 13.4 %
[2020-08-07] MEDS: VENLAFAXINE 25 MG PO SCH (09:23)
[2020-08-07] MEDS: Potassium Chlor 20 meq TAB.ER PO SCH (09:23)
[2020-08-07] MEDS: Enoxaparin 60 MG/0.6 ML SYR SUBCUT SCH ×2 (09:24→22:28)
[2020-08-07] MEDS: Cholecalciferol (VIT D3) 1,000 unit TAB PO SCH (09:24)
[2020-08-07 11:25] LABS: Influenza A Molecular Negative (Negative); Influenza B Molecular Negative (Negative)
[2020-08-07] MEDS: cefTRIAXone 1 gm/50 mL NS BAG 1 GM/50 ML BAG IVPB SCH (13:58)
[2020-08-07] MEDS: HYDROcodone/ACETAMIN 5/325 mg TAB PO PRN ×2 (15:22→22:27)
[2020-08-07 18:08] LABS: Urine Appearance Cloudy; Urine Bilirubin Negative (Negative); Urine Blood Negative (Negative); Urine Color Yellow; Urine Glucose Negative (Negative); Urine Ketones Negative (Negative); Urine Nitrite Positive (Negative); Urine Protein Negative (Negative); Urine Specific Gravity 1.014 (1.010-1.030); Urine Urobilinogen Negative (Negative)
[2020-08-07 18:21] LABS: Urine Bacteria 3+ (Absent); Urine Red Blood Cell Trace(0-2/hpf) (Absent); Urine Squamous Epithelial Cell Present (Absent); Urine White Blood Cell 3+(>20/hpf) (Absent)
[2020-08-08] MEDS: SPIRIVA Respimat (tiotropium) 2.5 mcg/inh Inhaler INH SCH (07:44)
[2020-08-08] MEDS: HYDROcodone/ACETAMIN 5/325 mg TAB PO PRN ×3 (08:56→21:21)
[2020-08-08] MEDS: Potassium Chlor 20 meq TAB.ER PO SCH (08:56)
[2020-08-08] MEDS: VENLAFAXINE 25 MG PO SCH (08:56)
[2020-08-08] MEDS: Cholecalciferol (VIT D3) 1,000 unit TAB PO SCH (08:56)
[2020-08-08] MEDS: Enoxaparin 60 MG/0.6 ML SYR SUBCUT SCH ×2 (09:04→21:21)
[2020-08-08] MEDS: cefTRIAXone 1 gm/50 mL NS BAG 1 GM/50 ML BAG IVPB SCH (12:08)
[2020-08-09] MEDS: VENLAFAXINE 25 MG PO SCH (07:54)
[2020-08-09] MEDS: HYDROcodone/ACETAMIN 5/325 mg TAB PO PRN ×2 (07:56→17:38)
[2020-08-09] MEDS: Cholecalciferol (VIT D3) 1,000 unit TAB PO SCH (07:57)
[2020-08-09] MEDS: Potassium Chlor 20 meq TAB.ER PO SCH (08:01)
[2020-08-09] MEDS: Enoxaparin 60 MG/0.6 ML SYR SUBCUT SCH ×2 (08:04→21:25)
[2020-08-09] MEDS: SPIRIVA Respimat (tiotropium) 2.5 mcg/inh Inhaler INH SCH (10:40)
[2020-08-09] MEDS: cefTRIAXone 1 gm/50 mL NS BAG 1 GM/50 ML BAG IVPB SCH (12:27)
[2020-08-09] MEDS: Magnesium Hydroxide LIQ 30 ML UDC PO PRN (17:39)
[2020-08-09] MEDS: Magnesium Hydroxide LIQ 30 ML UDC PO SCH (21:25)
[2020-08-10] MEDS: HYDROcodone/ACETAMIN 5/325 mg TAB PO PRN ×2 (04:48→21:14)
[2020-08-10 06:39] LABS: ABS Basophils 0.1 10^3/ul (0-0.2); ABS Eosinophils 0.5 10^3/ul (0-0.6); ABS Lymphocytes 0.9 10^3/ul (1.0-4.8); ABS Monocytes 1.3 10^3/ul (0-0.8); ABS Neutrophils 8.1 10^3/ul (1.5-7.7); Eosinophil % 4.5 %; Hematocrit 33 % (35-47); Hemoglobin 11.2 g/dL (12.0-16.0); Lymphocyte % 8.1 %; Mean Corpuscular HGB Conc 34 g/dL (31-36); Mean Corpuscular Hemoglobin 31 pg (27-31); Mean Corpuscular Volume 89 fL (80-97); Mean Platelet Volume 7.4 fL (7.4-10.4); Platelet Count 507 10^3/uL (150-450); Red Blood Count 3.68 10^6 /uL (3.70-4.87); Red Cell Distribution Width 14 % (10-15); White Blood Count 10.9 10^3/uL (3.5-10.8)
[2020-08-10 07:03] LABS: BUN/Creatinine Ratio 20.8 (8-20); Calcium 8.9 mg/dL (8.6-10.3); EGFR African American 132.7 (>60); EGFR Non-African American 109.6 (>60)
[2020-08-10] MEDS: SPIRIVA Respimat (tiotropium) 2.5 mcg/inh Inhaler INH SCH (08:22)
[2020-08-10] MEDS: Cholecalciferol (VIT D3) 1,000 unit TAB PO SCH (09:07)
[2020-08-10] MEDS: Magnesium Hydroxide LIQ 30 ML UDC PO SCH ×2 (09:09→21:13)
[2020-08-10] MEDS: VENLAFAXINE 25 MG PO SCH (09:10)
[2020-08-10] MEDS: Potassium Chlor 20 meq TAB.ER PO SCH (09:16)
[2020-08-10] MEDS: Enoxaparin 60 MG/0.6 ML SYR SUBCUT SCH ×2 (11:13→21:12)
[2020-08-10] MEDS: cefTRIAXone 1 gm/50 mL NS BAG 1 GM/50 ML BAG IVPB SCH (12:46)
[2020-08-11] MEDS: VENLAFAXINE 25 MG PO SCH (09:24)
[2020-08-11] MEDS: HYDROcodone/ACETAMIN 5/325 mg TAB PO PRN ×2 (09:25→15:50)
[2020-08-11] MEDS: Cholecalciferol (VIT D3) 1,000 unit TAB PO SCH (09:27)
[2020-08-11] MEDS: Potassium Chlor 20 meq TAB.ER PO SCH (09:28)
[2020-08-11] MEDS: Magnesium Hydroxide LIQ 30 ML UDC PO SCH ×2 (10:44→21:20)
[2020-08-11] MEDS: Enoxaparin 60 MG/0.6 ML SYR SUBCUT SCH (11:00)
[2020-08-11] MEDS: SPIRIVA Respimat (tiotropium) 2.5 mcg/inh Inhaler INH SCH (12:38)
[2020-08-11] MEDS: cefTRIAXone 1 gm/50 mL NS BAG 1 GM/50 ML BAG IVPB SCH (12:43)
[2020-08-11] MEDS: Enoxaparin 40 MG/0.4 ML SYR SUBCUT SCH (21:25)
[2020-08-12] MEDS: SPIRIVA Respimat (tiotropium) 2.5 mcg/inh Inhaler INH SCH (07:58)
[2020-08-12] MEDS: VENLAFAXINE 25 MG PO SCH (09:27)
[2020-08-12] MEDS: Cholecalciferol (VIT D3) 1,000 unit TAB PO SCH (09:27)
[2020-08-12] MEDS: Potassium Chlor 20 meq TAB.ER PO SCH (09:28)
[2020-08-12] MEDS: Enoxaparin 40 MG/0.4 ML SYR SUBCUT SCH (20:54)
[2020-08-13] MEDS: HYDROcodone/ACETAMIN 5/325 mg TAB PO PRN ×3 (06:22→18:20)
[2020-08-13] MEDS: Potassium Chlor 20 meq TAB.ER PO SCH (08:12)
[2020-08-13] MEDS: Cholecalciferol (VIT D3) 1,000 unit TAB PO SCH (08:12)
[2020-08-13] MEDS: VENLAFAXINE 25 MG PO SCH (08:12)
[2020-08-13] MEDS: SPIRIVA Respimat (tiotropium) 2.5 mcg/inh Inhaler INH SCH (08:27)
[2020-08-13] MEDS: Enoxaparin 40 MG/0.4 ML SYR SUBCUT SCH (20:02)
[2020-08-14] MEDS: VENLAFAXINE 25 MG PO SCH (07:57)
[2020-08-14] MEDS: Potassium Chlor 20 meq TAB.ER PO SCH (07:58)
[2020-08-14] MEDS: Cholecalciferol (VIT D3) 1,000 unit TAB PO SCH (07:58)
[2020-08-14] MEDS: HYDROcodone/ACETAMIN 5/325 mg TAB PO PRN ×2 (07:58→19:48)
[2020-08-14] MEDS: SPIRIVA Respimat (tiotropium) 2.5 mcg/inh Inhaler INH SCH (08:19)
[2020-08-14] MEDS: Enoxaparin 40 MG/0.4 ML SYR SUBCUT SCH (19:48)
[2020-08-15] MEDS: HYDROcodone/ACETAMIN 5/325 mg TAB PO PRN ×3 (04:16→20:03)
[2020-08-15] MEDS: SPIRIVA Respimat (tiotropium) 2.5 mcg/inh Inhaler INH SCH (08:40)
[2020-08-15] MEDS: Potassium Chlor 20 meq TAB.ER PO SCH (09:59)
[2020-08-15] MEDS: Cholecalciferol (VIT D3) 1,000 unit TAB PO SCH (09:59)
[2020-08-15] MEDS: VENLAFAXINE 25 MG PO SCH (09:59)
[2020-08-15] MEDS: diPHENhydraMINE 25 mg TAB PO PRN (20:02)
[2020-08-15] MEDS: Enoxaparin 40 MG/0.4 ML SYR SUBCUT SCH (20:02)
[2020-08-16] MEDS: diPHENhydraMINE 25 mg TAB PO PRN ×2 (08:07→16:32)
[2020-08-16] MEDS: HYDROcodone/ACETAMIN 5/325 mg TAB PO PRN ×2 (08:07→16:33)
[2020-08-16] MEDS: SPIRIVA Respimat (tiotropium) 2.5 mcg/inh Inhaler INH SCH (08:12)
[2020-08-16] MEDS: Potassium Chlor 20 meq TAB.ER PO SCH (08:50)
[2020-08-16] MEDS: Polyethylene Glycol 3350 17 GM PACKET PO PRN (08:50)
[2020-08-16] MEDS: Cholecalciferol (VIT D3) 1,000 unit TAB PO SCH (08:50)
[2020-08-16] MEDS: VENLAFAXINE 25 MG PO SCH (08:50)
[2020-08-16] MEDS: Senna TAB 8.6 mg TAB PO PRN (21:15)
[2020-08-16] MEDS: Enoxaparin 40 MG/0.4 ML SYR SUBCUT SCH (21:15)
[2020-08-17] MEDS: SPIRIVA Respimat (tiotropium) 2.5 mcg/inh Inhaler INH SCH (07:45)
[2020-08-17] MEDS: VENLAFAXINE 25 MG PO SCH (08:42)
[2020-08-17] MEDS: Potassium Chlor 20 meq TAB.ER PO SCH (08:45)
[2020-08-17] MEDS: Cholecalciferol (VIT D3) 1,000 unit TAB PO SCH (08:45)
[2020-08-17] MEDS: HYDROcodone/ACETAMIN 5/325 mg TAB PO PRN ×2 (08:57→16:16)
[2020-08-17] MEDS: Enoxaparin 40 MG/0.4 ML SYR SUBCUT SCH (21:52)
[2020-08-17] MEDS: Magnesium Hydroxide LIQ 30 ML UDC PO PRN (21:53)
[2020-08-18] MEDS: SPIRIVA Respimat (tiotropium) 2.5 mcg/inh Inhaler INH SCH (07:46)
[2020-08-18] MEDS: HYDROcodone/ACETAMIN 5/325 mg TAB PO PRN (09:26)
[2020-08-18] MEDS: VENLAFAXINE 25 MG PO SCH (09:53)
[2020-08-18] MEDS: Cholecalciferol (VIT D3) 1,000 unit TAB PO SCH (09:55)
[2020-08-18] MEDS: Potassium Chlor 20 meq TAB.ER PO SCH (09:55)
[2020-08-18] MEDS: diPHENhydraMINE 25 mg TAB PO PRN (12:26)
[2020-08-18] MEDS: Enoxaparin 40 MG/0.4 ML SYR SUBCUT SCH (22:06)
[2020-08-19 06:30] LABS: Hematocrit 37 % (35-47); Hemoglobin 12.2 g/dL (12.0-16.0); Mean Corpuscular HGB Conc 33 g/dL (31-36); Mean Corpuscular Hemoglobin 30 pg (27-31); Mean Corpuscular Volume 90 fL (80-97); Mean Platelet Volume 7.2 fL (7.4-10.4); Platelet Count 556 10^3/uL (150-450); Red Blood Count 4.15 10^6 /uL (3.70-4.87); Red Cell Distribution Width 15 % (10-15); White Blood Count 11.7 10^3/uL (3.5-10.8)
[2020-08-19] MEDS: HYDROcodone/ACETAMIN 5/325 mg TAB PO PRN (06:38)
[2020-08-19 07:14] LABS: Albumin 3.2 g/dL (3.2-5.2); BUN/Creatinine Ratio 13.6 (8-20); Calcium 9.5 mg/dL (8.6-10.3); EGFR Non-African American 85.1 (>60); Globulin 3.2 g/dL (2-4); Magnesium 1.9 mg/dL (1.9-2.7); Potassium 3.8 mmol/L (3.5-5.0); Total Bilirubin 0.3 mg/dL (0.2-1.0); Total Protein 6.4 g/dL (6.4-8.9)
[2020-08-19 07:16] LABS: ABS Basophils 0.1 10^3/ul (0-0.2); ABS Eosinophils 0.5 10^3/ul (0-0.6); ABS Monocytes 1.4 10^3/ul (0-0.8); ABS Neutrophils 7.7 10^3/ul (1.5-7.7); Eosinophil % 4.4 %; Lymphocyte % 16.7 %; Nucleated Red Blood Cells % 0.1
[2020-08-19] MEDS: SPIRIVA Respimat (tiotropium) 2.5 mcg/inh Inhaler INH SCH (07:49)
[2020-08-19] MEDS: Cholecalciferol (VIT D3) 1,000 unit TAB PO SCH (10:29)
[2020-08-19] MEDS: VENLAFAXINE 25 MG PO SCH (10:30)
[2020-08-19] MEDS ORDERED: Ondansetron ODT 4 mg TAB 4 MG TAB SL PRN (13:44)
[2020-08-19] MEDS: Potassium Chlor 20 meq TAB.ER PO SCH (16:52)
[2020-08-19] MEDS: Enoxaparin 40 MG/0.4 ML SYR SUBCUT SCH (22:25)
[2020-08-20] MEDS: SPIRIVA Respimat (tiotropium) 2.5 mcg/inh Inhaler INH SCH (08:16)
[2020-08-20] MEDS: Potassium Chlor 20 meq TAB.ER PO SCH (10:07)
[2020-08-20] MEDS: Cholecalciferol (VIT D3) 1,000 unit TAB PO SCH (10:07)
[2020-08-20] MEDS: VENLAFAXINE 25 MG PO SCH (10:07)
[2020-08-20 19:09] LABS: Hematocrit 38 % (35-47); Hemoglobin 12.6 g/dL (12.0-16.0); Mean Corpuscular HGB Conc 33 g/dL (31-36); Mean Corpuscular Hemoglobin 30 pg (27-31); Mean Corpuscular Volume 90 fL (80-97); Mean Platelet Volume 7.1 fL (7.4-10.4); Platelet Count 506 10^3/uL (150-450); Red Blood Count 4.23 10^6 /uL (3.70-4.87); Red Cell Distribution Width 15 % (10-15); White Blood Count 11.2 10^3/uL (3.5-10.8)
[2020-08-20 19:27] LABS: BUN/Creatinine Ratio 15.9 (8-20); C Reactive Protein 10.94 mg/L (<8.01); Calcium 9.3 mg/dL (8.6-10.3); EGFR African American 73.9 (>60); EGFR Non-African American 61.1 (>60); Potassium 4.7 mmol/L (3.5-5.0)
[2020-08-20 19:37] LABS: ABS Basophils 0.2 10^3/ul (0-0.2); ABS Eosinophils 0.4 10^3/ul (0-0.6); ABS Lymphocytes 1.7 10^3/ul (1.0-4.8); ABS Monocytes 1.3 10^3/ul (0-0.8); ABS Neutrophils 7.6 10^3/ul (1.5-7.7); Eosinophil % 3.5 %; Lymphocyte % 15.1 %
[2020-08-20] MEDS ORDERED: cefTRIAXone 1 gm/50 mL NS BAG 1 GM/50 ML BAG IVPB SCH (20:00)
[2020-08-20] MEDS ORDERED: NS 0.9% IV ONE (20:00)
[2020-08-20] MEDS: Enoxaparin 40 MG/0.4 ML SYR SUBCUT SCH (21:18)
[2020-08-21 04:40] LABS: Urine Appearance Cloudy; Urine Bilirubin Negative (Negative); Urine Blood 1+ (Negative); Urine Color Yellow; Urine Glucose Negative (Negative); Urine Ketones Negative (Negative); Urine Nitrite Negative (Negative); Urine Protein Negative (Negative); Urine Specific Gravity 1.006 (1.010-1.030); Urine Urobilinogen Negative (Negative)
[2020-08-21 05:22] LABS: Urine Bacteria 1+ (Absent); Urine Red Blood Cell 3+(>10/hpf) (Absent); Urine Squamous Epithelial Cell Present (Absent); Urine White Blood Cell 3+(>20/hpf) (Absent)
[2020-08-21] MEDS: SPIRIVA Respimat (tiotropium) 2.5 mcg/inh Inhaler INH SCH (07:53)
[2020-08-21] MEDS: Cholecalciferol (VIT D3) 1,000 unit TAB PO SCH (09:59)
[2020-08-21] MEDS: Potassium Chlor 20 meq TAB.ER PO SCH (09:59)
[2020-08-21] MEDS: HYDROcodone/ACETAMIN 5/325 mg TAB PO PRN ×2 (10:00→23:42)
[2020-08-21] MEDS: VENLAFAXINE 25 MG PO SCH (10:00)
[2020-08-21] MEDS: Cefepime 1 GM in Dextrose 1 GM/50 ML BAG IV SCH ×2 (11:33→21:37)
[2020-08-21] MEDS: Enoxaparin 40 MG/0.4 ML SYR SUBCUT SCH (21:37)
[2020-08-22 06:36] LABS: ABS Eosinophils 0.5 10^3/ul (0-0.6); ABS Lymphocytes 1.2 10^3/ul (1.0-4.8); ABS Monocytes 1.1 10^3/ul (0-0.8); ABS Neutrophils 6.5 10^3/ul (1.5-7.7); Eosinophil % 5.5 %; Hematocrit 34 % (35-47); Hemoglobin 11.2 g/dL (12.0-16.0); Lymphocyte % 13.4 %; Mean Corpuscular HGB Conc 33 g/dL (31-36); Mean Corpuscular Hemoglobin 30 pg (27-31); Mean Corpuscular Volume 90 fL (80-97); Platelet Count 375 10^3/uL (150-450); Red Blood Count 3.76 10^6 /uL (3.70-4.87); Red Cell Distribution Width 15 % (10-15); White Blood Count 9.3 10^3/uL (3.5-10.8)
[2020-08-22 06:56] LABS: BUN/Creatinine Ratio 14.7 (8-20); EGFR African American 99.5 (>60); EGFR Non-African American 82.2 (>60); Potassium 3.9 mmol/L (3.5-5.0)
[2020-08-22] MEDS: Cefepime 1 GM in Dextrose 1 GM/50 ML BAG IV SCH ×2 (07:50→22:47)
[2020-08-22] MEDS: Cholecalciferol (VIT D3) 1,000 unit TAB PO SCH (07:52)
[2020-08-22] MEDS: VENLAFAXINE 25 MG PO SCH (07:52)
[2020-08-22] MEDS: Potassium Chlor 20 meq TAB.ER PO SCH (07:52)
[2020-08-22] MEDS: SPIRIVA Respimat (tiotropium) 2.5 mcg/inh Inhaler INH SCH (08:08)
[2020-08-22] MEDS: Senna TAB 8.6 mg TAB PO PRN (22:46)
[2020-08-22] MEDS: Enoxaparin 40 MG/0.4 ML SYR SUBCUT SCH (22:47)
[2020-08-23] MEDS: HYDROcodone/ACETAMIN 5/325 mg TAB PO PRN (04:26)
[2020-08-23] MEDS: Cefepime 1 GM in Dextrose 1 GM/50 ML BAG IV SCH ×2 (08:40→20:48)
[2020-08-23] MEDS: Cholecalciferol (VIT D3) 1,000 unit TAB PO SCH (08:41)
[2020-08-23] MEDS: VENLAFAXINE 25 MG PO SCH (08:41)
[2020-08-23] MEDS: Potassium Chlor 20 meq TAB.ER PO SCH (08:42)
[2020-08-23] MEDS: SPIRIVA Respimat (tiotropium) 2.5 mcg/inh Inhaler INH SCH (11:37)
[2020-08-23] MEDS: Senna TAB 8.6 mg TAB PO PRN (20:48)
[2020-08-23] MEDS: Enoxaparin 40 MG/0.4 ML SYR SUBCUT SCH (20:48)
[2020-08-23] MEDS: Polyethylene Glycol 3350 17 GM PACKET PO PRN (20:48)
[2020-08-23] MEDS: Magnesium Hydroxide LIQ 30 ML UDC PO PRN (20:48)
[2020-08-24] MEDS: Albuterol HFA INHALER 8 gm MDI INH PRN (04:56)
[2020-08-24] MEDS: SPIRIVA Respimat (tiotropium) 2.5 mcg/inh Inhaler INH SCH (07:49)
[2020-08-24] MEDS: Cefepime 1 GM in Dextrose 1 GM/50 ML BAG IV SCH (08:33)
[2020-08-24] MEDS: Cholecalciferol (VIT D3) 1,000 unit TAB PO SCH (08:41)
[2020-08-24] MEDS: Potassium Chlor 20 meq TAB.ER PO SCH (08:41)
[2020-08-24] MEDS: VENLAFAXINE 25 MG PO SCH (08:42)
[2020-08-24] MEDS: Enoxaparin 40 MG/0.4 ML SYR SUBCUT SCH (20:10)
[2020-08-25 05:48] LABS: Hematocrit 34 % (35-47); Hemoglobin 11.2 g/dL (12.0-16.0); Mean Corpuscular HGB Conc 34 g/dL (31-36); Mean Corpuscular Hemoglobin 30 pg (27-31); Mean Corpuscular Volume 90 fL (80-97); Platelet Count 341 10^3/uL (150-450); Red Blood Count 3.71 10^6 /uL (3.70-4.87); Red Cell Distribution Width 15 % (10-15); White Blood Count 10.2 10^3/uL (3.5-10.8)
[2020-08-25 06:07] LABS: BUN/Creatinine Ratio 15.9 (8-20); Calcium 9.4 mg/dL (8.6-10.3); EGFR African American 108.7 (>60); EGFR Non-African American 89.8 (>60); Potassium 4.2 mmol/L (3.5-5.0)
[2020-08-25] MEDS: SPIRIVA Respimat (tiotropium) 2.5 mcg/inh Inhaler INH SCH (07:50)
[2020-08-25] MEDS: VENLAFAXINE 25 MG PO SCH (08:49)
[2020-08-25] MEDS: Cholecalciferol (VIT D3) 1,000 unit TAB PO SCH (08:49)
[2020-08-25] MEDS: Potassium Chlor 20 meq TAB.ER PO SCH (08:49)
[2020-08-25] MEDS: Albuterol HFA INHALER 8 gm MDI INH PRN (17:48)
[2020-08-25] MEDS ORDERED: Furosemide 40 mg/4 ml IV VIAL IV ONE ×2 (18:34)
[2020-08-25] MEDS ORDERED: Furosemide 20 mg/2 ml IV VIAL ONE (18:43)
[2020-08-25] MEDS: Albuterol/Ipratropium NEB.SOL (2.5/0.5 MG) 3 ML NEB.SOLN INH PRN (20:00)
[2020-08-25] MEDS: Senna TAB 8.6 mg TAB PO PRN (20:55)
[2020-08-25] MEDS: Enoxaparin 40 MG/0.4 ML SYR SUBCUT SCH (20:56)
[2020-08-25] MEDS: Magnesium Hydroxide LIQ 30 ML UDC PO PRN (20:56)
[2020-08-26] MEDS ORDERED: Furosemide 20 mg/2 ml IV VIAL IV ONE (07:45)
[2020-08-26] MEDS: Cholecalciferol (VIT D3) 1,000 unit TAB PO SCH (08:12)
[2020-08-26] MEDS: Potassium Chlor 20 meq TAB.ER PO SCH (08:12)
[2020-08-26] MEDS: SPIRIVA Respimat (tiotropium) 2.5 mcg/inh Inhaler INH SCH (08:12)
[2020-08-26] MEDS: VENLAFAXINE 25 MG PO SCH (08:14)
[2020-08-26 09:38] LABS: Urine Appearance Cloudy; Urine Bilirubin Negative (Negative); Urine Blood Negative (Negative); Urine Color Yellow; Urine Glucose Negative (Negative); Urine Ketones Negative (Negative); Urine Nitrite Negative (Negative); Urine Protein Negative (Negative); Urine Specific Gravity 1.009 (1.010-1.030); Urine Urobilinogen Negative (Negative)
[2020-08-26 09:54] LABS: Urine Bacteria Absent (Absent); Urine Red Blood Cell Trace(0-2/hpf) (Absent); Urine Squamous Epithelial Cell Present (Absent); Urine White Blood Cell 2+(11-20/hpf) (Absent)
[2020-08-26] MEDS: Albuterol HFA INHALER 8 gm MDI INH PRN (10:49)
[2020-08-26] MEDS: Enoxaparin 40 MG/0.4 ML SYR SUBCUT SCH (21:08)
[2020-08-27] MEDS: Albuterol HFA INHALER 8 gm MDI INH PRN ×2 (01:57→14:10)
[2020-08-27] MEDS: VENLAFAXINE 25 MG PO SCH (08:21)
[2020-08-27] MEDS: Cholecalciferol (VIT D3) 1,000 unit TAB PO SCH (08:23)
[2020-08-27] MEDS: Potassium Chlor 20 meq TAB.ER PO SCH (08:24)
[2020-08-27] MEDS: SPIRIVA Respimat (tiotropium) 2.5 mcg/inh Inhaler INH SCH (08:27)
[2020-08-27] MEDS: Albuterol/Ipratropium NEB.SOL (2.5/0.5 MG) 3 ML NEB.SOLN INH PRN (14:23)
[2020-08-27] MEDS: Enoxaparin 40 MG/0.4 ML SYR SUBCUT SCH (20:36)
[2020-08-28] MEDS: Magnesium Hydroxide LIQ 30 ML UDC PO PRN (00:28)
[2020-08-28] MEDS: Polyethylene Glycol 3350 17 GM PACKET PO PRN (00:30)
[2020-08-28] MEDS: Senna TAB 8.6 mg TAB PO PRN (00:30)
[2020-08-28] MEDS: Potassium Chlor 20 meq TAB.ER PO SCH (08:04)
[2020-08-28] MEDS: VENLAFAXINE 25 MG PO SCH (08:04)
[2020-08-28] MEDS: SPIRIVA Respimat (tiotropium) 2.5 mcg/inh Inhaler INH SCH (08:05)
[2020-08-28] MEDS: Cholecalciferol (VIT D3) 1,000 unit TAB PO SCH (08:11)
[2020-08-28 09:03] LABS: ABS Basophils 0.1 10^3/ul (0-0.2); ABS Lymphocytes 1.7 10^3/ul (1.0-4.8); Eosinophil % 9.5 %; Hematocrit 37 % (35-47); Hemoglobin 12.1 g/dL (12.0-16.0); Lymphocyte % 15.9 %; Mean Corpuscular HGB Conc 32 g/dL (31-36); Mean Corpuscular Hemoglobin 30 pg (27-31); Mean Corpuscular Volume 92 fL (80-97); Mean Platelet Volume 7.8 fL (7.4-10.4); Platelet Count 288 10^3/uL (150-450); Red Blood Count 4.08 10^6 /uL (3.70-4.87); Red Cell Distribution Width 15 % (10-15); White Blood Count 10.8 10^3/uL (3.5-10.8)
[2020-08-28] MEDS ORDERED: HYDROcodone/ACETAMIN 5/325 mg TAB PO PRN (09:07)
[2020-08-28] MEDS: HYDROcodone/ACETAMIN 5/325 mg TAB PO PRN ×2 (10:20→20:05)
[2020-08-28] MEDS: Enoxaparin 40 MG/0.4 ML SYR SUBCUT SCH (20:02)
[2020-08-28] MEDS: Albuterol HFA INHALER 8 gm MDI INH PRN (23:30)
[2020-08-28] MEDS: Albuterol/Ipratropium NEB.SOL (2.5/0.5 MG) 3 ML NEB.SOLN INH PRN (23:52)
[2020-08-29] MEDS: Cholecalciferol (VIT D3) 1,000 unit TAB PO SCH (08:16)
[2020-08-29] MEDS: HYDROcodone/ACETAMIN 5/325 mg TAB PO PRN ×4 (08:18→21:01)
[2020-08-29] MEDS: VENLAFAXINE 25 MG PO SCH (08:18)
[2020-08-29] MEDS: Potassium Chlor 20 meq TAB.ER PO SCH (08:19)
[2020-08-29] MEDS: SPIRIVA Respimat (tiotropium) 2.5 mcg/inh Inhaler INH SCH (08:20)
[2020-08-29] MEDS: Albuterol/Ipratropium NEB.SOL (2.5/0.5 MG) 3 ML NEB.SOLN INH PRN (16:05)
[2020-08-29] MEDS: Enoxaparin 40 MG/0.4 ML SYR SUBCUT SCH (20:56)
[2020-08-30] MEDS: SPIRIVA Respimat (tiotropium) 2.5 mcg/inh Inhaler INH SCH (08:00)
[2020-08-30] MEDS: VENLAFAXINE 25 MG PO SCH (08:04)
[2020-08-30] MEDS: Cholecalciferol (VIT D3) 1,000 unit TAB PO SCH (08:05)
[2020-08-30] MEDS: Potassium Chlor 20 meq TAB.ER PO SCH (08:08)
[2020-08-30] MEDS: HYDROcodone/ACETAMIN 5/325 mg TAB PO PRN ×3 (08:43→16:40)
[2020-08-30] MEDS: Albuterol/Ipratropium NEB.SOL (2.5/0.5 MG) 3 ML NEB.SOLN INH PRN (08:48)
[2020-08-30] MEDS: Magnesium Hydroxide LIQ 30 ML UDC PO PRN (18:09)
[2020-08-30] MEDS: Enoxaparin 40 MG/0.4 ML SYR SUBCUT SCH (20:53)
[2020-08-31] MEDS: Nystatin TOP POWDER 15 GM BTL TOPICAL SCH ×4 (00:36→21:12)
[2020-08-31] MEDS: SPIRIVA Respimat (tiotropium) 2.5 mcg/inh Inhaler INH SCH (09:02)
[2020-08-31] MEDS: Albuterol HFA INHALER 8 gm MDI INH PRN (10:04)
[2020-08-31] MEDS: Potassium Chlor 20 meq TAB.ER PO SCH (10:05)
[2020-08-31] MEDS: Cholecalciferol (VIT D3) 1,000 unit TAB PO SCH (10:05)
[2020-08-31] MEDS: VENLAFAXINE 25 MG PO SCH (10:09)
[2020-08-31] MEDS: HYDROcodone/ACETAMIN 5/325 mg TAB PO PRN (18:57)
[2020-08-31] MEDS: Enoxaparin 40 MG/0.4 ML SYR SUBCUT SCH (21:12)
[2020-09-01] MEDS: VENLAFAXINE 25 MG PO SCH (08:56)
[2020-09-01] MEDS: Nystatin TOP POWDER 15 GM BTL TOPICAL SCH (08:57)
[2020-09-01] MEDS: HYDROcodone/ACETAMIN 5/325 mg TAB PO PRN (08:57)
[2020-09-01] MEDS: SPIRIVA Respimat (tiotropium) 2.5 mcg/inh Inhaler INH SCH (08:57)
[2020-09-01] MEDS: Cholecalciferol (VIT D3) 1,000 unit TAB PO SCH (08:57)
[2020-09-01] MEDS ORDERED: Potassium Chlor 20 meq TAB.ER PO SCH (09:00)
[2020-09-01 11:00] VITALS: BP 115/55
== END 2020-09-01 11:45 | DRG 689 ==
LOC: MED 12:01 → MEDTELE 08-22 21:35 → SSU 08-22 21:40
PROVIDERS: ADMIT Hospitalist; ATTEND Internal Medicine